=== PATIENT | male | born 1980 | race Caucasian/White ===

== ENCOUNTER 2023-06-18 17:54 | Emergency (ER) | payer OTHER, SELFPAY ==
--- NOTE | 2023-06-18 17:56 | ED.GENADULT ---
HPI - General Adult General Chief complaint: Dental/Oral Stated complaint: Tongue Pain Time Seen by Provider: 06/18/23 18:01 Source: patient, RN notes reviewed and old records reviewed Mode of arrival: ambulatory Limitations: no limitations History of Present Illness HPI narrative: 43-year-old male presents to the [facility] with complaints of tongue pain that started wants to month ago, was seen treated with Diflucan and nystatin which he has completed. Pain and the white pattern to the right side tongue has not completely gone away. Pain has been increasing. Has not followed up with primary care provider. Patient states that started after drinking a monster drink Denies any past medical history. Denies any recent dental work. States the Diflucan in the nystatin has not close to working. Tried swishing and spitting liquid Benadryl last night and it stone more. Onset (ago): week(s) (4+) Location: mouth (tongue) Related Data Allergies Allergy/AdvReac Type Severity Reaction Status Date / Time Sulfa (Sulfonamide Allergy Intermediate Hives Verified 06/18/23 18:05 Antibiotics) Review of Systems Review of Systems: All systems reviewed & are unremarkable except as noted in HPI and below Constitutional: Constitutional: Reports no additional constitutional complaints Eyes: Eyes: Reports no additional eye complaints ENT: Reports as per HPI Cardiovascular: Cardiovascular: Reports no additional cardiovascular complaints, Denies chest pain and Denies dyspnea Respiratory: Respiratory: Reports no additional respiratory complaints, Denies chest congestion, Denies cough and Denies dyspnea Gastrointestinal: Gastrointestinal: Reports no additional gastrointestinal complaints, Denies abdominal pain, Denies nausea and Denies vomiting Musculoskeletal: Musculoskeletal: Reports no additional musculoskeletal complaints Integumentary/Breasts: Skin/Breast: Reports system reviewed and no additional complaints, except as docu Neurologic: Reports system reviewed and no additional complaints, except as documented Psychiatric: Psychiatric: Reports no additional psychiatric complaints Allergic/Immunologic: Allergic/Immunologic: Reports no additional allergic/immunologic complaints PMFSH Past Medical History Medical History (Updated 06/19/23 @ 17:56 by Caprice Bentley APRN) Patient denies medical problems Comments At the time of my signature, I reviewed and agree with the nursing past medical, surgical, social, and family history. There is no relevant family history pertinent to the patient complaint. Exam Const: General: cooperative, healthy appearing, comfortable, no acute distress, well developed, alert and well nourished Nutritional Appearance: well nourished Orientation/consciousness: patient oriented x3 Limitations: no limitations HENMT: Head: normal to inspection Ears: hearing grossly normal bilaterally and external ears normal Face/Nose/Sinus: Normal external nose present, Normal nares present, Normal nasal mucous membranes and turbinates present and normal facial exam Face and sinus: normal facial exam Mouth: Yes Normal oral and palatal mucosa present, Yes lip normal, No tongue normal and Yes moist mucous membranes Mouth/tongue images: 1. redness with white patches. mild swelling. tender Throat: posterior oropharynx normal and uvula midline Eyes: General: appearance normal, both eyes and all related structures Alignment and Position: alignment normal Periorbital: periorbital findings normal Pupils: Equal, round and reactive pupils present EOM: EOMs intact bilaterally Neck: Neck: normal visual inspection, full ROM, no lymphadenopathy and no meningeal signs Chest: Chest palpation & inspection: normal inspection of the chest Resp: Effort & Inspection: normal respiratory effort and able to speak in complete sentences Auscultation: clear to auscultation bilaterally, no crackles, no rales, no rhonchi and no wheezes
[2023-06-18 18:02] VITALS: BP 129/65; PULSE 58; RESP 16; TEMP 36.3; O2SAT 100
== END 2023-06-18 18:31 | disposition home or self-care (01) ==
PROVIDERS: Emergency Provider Nurse Practitioner
DX: L43.9 Lichen planus, unspecified (principal)
CPT/HCPCS: 99203; G0463

== ENCOUNTER 2023-12-21 08:52 | Emergency (ER) | payer OTHER, SELFPAY ==
--- NOTE | ~2023-12-21 | XR_ITS ---
EXAMINATION: XR chest 2V 12/21/2023 09:31 INDICATION: Productive cough PROCEDURE: 2 view chest COMPARISON: No prior studies for comparison. FINDINGS: The lungs are clear. The cardiomediastinal silhouette is within normal limits. There are no pleural effusions. There is no pneumothorax suspected. IMPRESSION: 1: NO ACUTE CARDIOPULMONARY DISEASE. Reviewed, dictated and finalized at location B. [facility]
[2023-12-21 09:02] VITALS: BP 117/60; PULSE 61; RESP 16; TEMP 36.6; O2SAT 100
--- NOTE | 2023-12-21 09:06 | ED.URI ---
HPI - URI/Sore Throat General Chief Complaint: Upper Respiratory Infection Stated Complaint: Congestion, Headache Time Seen by Provider: 12/21/23 09:07 Source: patient Mode of arrival: ambulatory Limitations: no limitations History of Present Illness HPI Narrative: 43-year-old male presents to [facility] with complaints of 1 week duration of sinus congestion, headache, sinus drainage of yellowish green discharge, fever up to 103F on Sunday but none since. Patient reports that he has had some body aches, did have cold chills and fatigue yesterday. Patient reports that children have been ill with known exposure to influenza A. Patient denies any nausea,vomiting or diarrhea, denies any shortness of breath or wheezing. 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 Patient has been taking Ibuprofen and Sudafed and doing sinus rinses. MD elicited complaint: fever, cough, rhinorrhea, nasal congestion and other (body aches and chills) Pertinent past history: pneumonia Onset (ago): week(s) (1) Description of mucous: yellow and green Able to tolerate fluids by mouth: Yes Treatments prior to arrival: ibuprofen and other (Sudafed and sinus rinses) Related Data Allergies Allergy/AdvReac Type Severity Reaction Status Date / Time Sulfa (Sulfonamide AdvReac Mild Hives Verified 12/21/23 08:57 Antibiotics) Review of Systems Review of Systems: CONSTITUTIONAL: Reports malaise, chills, sweats, or fever. EYES: Denies visual changes, redness, or discharge. ENT: Reports rhinorrhea, congestion, sinus pain,left otalgia and no sore throat. CARDIOVASCULAR: Denies chest pain, palpitations, or edema. RESPIRATORY: Reports cough.? Denies dyspnea. GASTROINTESTINAL: Denies abdominal pain, nausea, vomiting, diarrhea SKIN: Denies rash or itching. MUSCULOSKELETAL: Reports myalgia. NEUROLOGIC: reports headache. 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 There is no relevant family history pertinent to the presenting complaint Exam Narrative: GENERAL: Well-appearing, well-nourished, and in no acute distress. HEAD: Normocephalic EYES: PERRLA, conjunctivae clear ENT: Nares clear, turbinates edematous and erythematous, yellow green discharge with headache sinus pressure . Mucous membranes moist. TM pearly vance with dull light reflex bilaterally; no tragal tenderness. Oropharynx erythematous without lesions. Tonsils not present and throat without exudate, no drooling, no hoarseness, no trismus, uvula midline.post nasal discharge NECK: Supple. No lymphadenopathy CHEST: Coarse breath sounds left base on auscultation, breath sounds equal. No wheezing, rhonchi, rales, or stridor. No respiratory distress, speaks in full sentences. occasional cough noted,SAO2 100% on room air HEART: Regular rate and rhythm. No murmur heard. SKIN: Warm, dry, no rash. NEURO: Alert and oriented x3. PSYCH: Normal mood and affect Course Course Emergency Course: Patient is aware of diagnosis, understands and agrees to treatment plan.? Anticipatory guidance given.? Patient agrees to annette
== END 2023-12-21 09:50 | disposition home or self-care (01) ==
PROVIDERS: Emergency Provider Registered Nurse
DX: J01.40 Acute pansinusitis, unspecified (principal); Z20.822 Contact with and (suspected) exposure to COVID-19; Z86.16 Personal history of COVID-19
CPT/HCPCS: 71046; 87426; 87804; 99203; G0463

== ENCOUNTER 2024-11-08 09:57 | Emergency (ER) | payer OTHER, SELFPAY ==
[2024-11-08 10:05] VITALS: BP 131/76; PULSE 58; RESP 20; TEMP 36.4; O2SAT 100
--- NOTE | 2024-11-08 10:10 | ED_ITS ---
HPI - General Adult General Chief complaint: Upper Respiratory Infection Stated complaint: sinus infection Time Seen by Provider: 11/08/24 10:10 Source: patient Mode of arrival: ambulatory Limitations: no limitations History of Present Illness HPI narrative: 44-year-old male patient presents to the [facility] with complaints of cold symptoms, sinus congestion, runny nose and left-sided ear pain for the past 2-3 days. Patient states he has had congestion last week but was not as severe and states patient just recently had left-sided ear pain starting about 2-3 days ago denies fevers but states has had some chills. Denies chest pain, shortness of breath or cough. Denies any abdominal pain, nausea, vomiting or diarrhea. Patient states he has just been taking 600 mg ibuprofen for pain. Related Data Allergies Allergy/AdvReac Type Severity Reaction Status Date / Time Sulfa (Sulfonamide AdvReac Mild Hives Verified 11/08/24 10:15 Antibiotics) Review of Systems Review of Systems: CONSTITUTIONAL: Denies fever, positive chills, and sweats. EYES: Denies visual changes, redness, or discharge. ENT: positive rhinorrhea, congestion, denies sore throat, Positive left otalgia. CARDIOVASCULAR: Denies chest pain, palpitations, or edema. RESPIRATORY: Denies cough or dyspnea. GASTROINTESTINAL: Denies abdominal pain, nausea, vomiting, or diarrhea. GENITOURINARY: Denies dysuria or hematuria. SKIN: Denies rash or itching. MUSCULOSKELETAL: Denies back pain, joint pain, or myalgia. NEUROLOGIC: Denies headache, numbness, or weakness. PSYCHIATRIC: Denies anxiety or depression. 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 There is no relevant family history pertinent to the presenting complaint. Exam Narrative: GENERAL: Well-appearing, well-nourished, and in no acute distress. HEAD: Normocephalic, atraumatic. EYES: PERRLA and EOMI. ENT: Nares with erythema edema noted bilaterally, clear rhinorrhea no epista xis. Mucous membranes moist. posterior pharynx with no erythema, tonsillar enlargement, exudates or lesions present. Unable to assess the right TM due to cerumen impaction. The left TM with bulging, erythema and some pus noted behind TM. NECK: Supple. No lymphadenopathy CHEST: Clear to auscultation. No respiratory distress. HEART: Regular rate and rhythm. No murmur heard. Normal peripheral pulses. ABDOMEN: Soft, nontender, nondistended, normal active bowel sounds. EXTREMITIES: Normal range of motion. No edema. SKIN: Warm, dry, no rash. NEURO: No focal deficits. Alert and oriented x3. Course Course Level of Care: Express Care Visit Vital Signs Vital signs: Vital Signs Temperature 36.4 C 11/08/24 10:05 Pulse Rate 58 L 11/08/24 10:05 Respiratory Rate 20 11/08/24 10:05 Blood Pressure 131/76 11/08/24 10:05 Pulse Oximetry 100 11/08/24 10:05 Oxygen Delivery Room Air 11/08/24 10:05 Temperature 36.4 C 11/08/24 10:05 Pulse Rate 58 L 11/08/24 10:05 Respiratory Rate 20 11/08/24 10:05 Blood Pressure 131/76 11/08/24 10:05 Pulse Oximetry 100 11/08/24 10:05 Oxygen Delivery Room Air 11/08/24 10:05 Vital signs reviewed. The patient has been informed that they may have pre-hypertension or Hypertension based on a BP reading in the department. I recommend that the patient call the primary care provider listed on their discharge instructions or a physician of their choice this week to arrange follow up for further evaluation of possible pre-hypertension or Hypertension Medical Decision Making MDM Narrative Medical decision making narrative: Discussed with patient does appear that he has an obvious left-sided ear infection which we will discharge him home with oral antibiotics. Patient should also take [id number] antihistamine and Flonase to help with the congestion symptoms. Patient may take Tylenol and ibuprofen as needed for pain. Patient verbalized understanding denies any other questions or concerns at this time Differential Diagnosis Differential Diagnosis: Differential diagnosis: Allergic rhinitis, chronic sinusitis, tonsillitis, acute sinusitis, infectious mononucleosis, seasonal influenza, pertussis, diphtheria, meningococcal disease, viral syndrome, viral bronchitis, RSV, COVID- 19 Vital Signs Vital Signs: Vital Signs Temperature 36.4 C 11/08/24 10:05 Pulse Rate 58 L 11/08/24 10:05 Respiratory Rate 20 11/08/24 10:05 Blood Pressure 131/76 11/08/24 10:05 Pulse Oximetry 100 11/08/24 10:05 Oxygen Delivery Room Air 11/08/24 10:05 Temperature 36.4 C 11/08/24 10:05 Pulse Rate 58 L 11/08/24 10:05 Respiratory Rate 20 11/08/24 10:05 Blood Pressure 131/76 11/08/24 10:05 Pulse Oximetry 100 11/08/24 10:05 Oxygen Delivery Room Air 11/08/24 10:05 Critical Care Time Critical Care Time Critical Care Time: No Discharge Plan Discharge Clinical Impression: Acute left otitis media Patient Disposition: Home, Self-Care Condition: Stable Instructions: Antibiotic Form, Ear Infection (ED) Additional Instructions: An ear infection is also called otitis media. An ear infection may be caused by blocked or swollen eustachian tubes. Eustachian tubes connect the middle ear to the back of the nose and throat. They drain fluid from the middle ear. With an e ar infection, fluid builds up and is infected by germs. The germs grow easily in fluid trapped behind the eardrum. DISCHARGE INSTRUCTIONS: Call 911 or have someone call 911 for the following: You have a seizure. Return to the emergency department if: You have a fever and a stiff neck. Contact your healthcare provider if: Your ear pain gets worse or does not go away, even after treatment. The outside of your ear is red or swollen. You are vomiting or have diarrhea. You have fluid coming from your ear. You have questions or concerns about your condition or care. Medicines: Acetaminophen decreases pain and fever. It is available without a doctor's order. Ask how much to take and how often to take it. Follow directions. Read the labels of all other medicines you are using to see if they also contain acetaminophen, or ask your doctor or pharmacist. Acetaminophen can cause liver damage if not taken correctly. Do not use more than 4 grams (4,000 milligrams) total of acetaminophen in one day. NSAIDs , such as ibuprofen, help decrease swelling, pain, and fever. This medicine is available with or without a doctor's order. NSAIDs can cause stomach bleeding or kidney problems in certain people. If you take blood thinner medicine, always ask your healthcare provider if NSAIDs are safe for you. Always read the medicine label and follow directions. Ear drops help treat your ear pain. Antibiotics help treat a bacterial infection that caused your ear infection. Take your medicine as directed. Contact your healthcare provider if you think your medicine is not helping or if you have side effects. Tell him or her if you are allergic to any medicine. Keep a list of the medicines, vitamins, and herbs you take. Include the amounts, and when and why you take them. Bring the list or the pill bottles to follow-up visits. Carry your medicine list with you in case of an emergency. Prevent an ear infection: Wash your hands often. Use soap and water. Wash your hands after you use the bathroom, change a child's diapers, or sneeze. Wash your hands before you prepare or eat food. Handwashing Stay away from people who are ill. Some germs are easily and quickly spread through contact. Patient Language: Thai Prescriptions: New amoxicillin-pot clavulanate 875-125 mg tablet 1 tablet PO Q12H 5 Days Qty: 10 0RF No Action amoxicillin 875 mg tablet 875 mg PO Q12H Qty: 20 0RF Rx Instructions: Take all doses of antibiotic till completed may eat Activia yogurt or use probiotic while taking Follow-up/Referrals: Manav,Urvashi Coe [Other] Time of Disposition: 10:18
--- OUTSIDE RECORDS SUMMARY | 2024-11-12 02:46 | XMS_ITS | Continuity of Care Document ---
Author Name [facility] Organization [facility] Care Team Providers Care Carbide Operator Name Role Phone [facility] Unavailable Unavailable Medications Combined list of outpatient medications from Department of Defense and Veterans Affairs facilities.Medications provided include 1) outpatient medications from the last 15 months, and 2) patient-reported medications. Medication Details Route Status Patient Instructions Prescription Expires Prescription Number Last Dispense Date Ordering Provider Order Date Order Qty Source AMOXICILLIN (amoxicilli n), 875 MG, TABLET, ORAL, [facility], 100 ea. BOTTLE Active [id number] 2023 20 Pharmac y Data Transac tion Service Facilit y Immunizations Combined list of available immunizations from the Department of Defense and Veterans Affairs facilities. 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 Status Comments Source meningococcal oligosacchari de (MCV4O) 2021 [id number] 136 GlaxoSmithKli ne complet ed meningoco ccal oligosacc haride (MCV4O) 09/30/22 Given Ambulat ory Pharmac y influenza virus vaccine, unspecified 2021 TRANSCR IBED 88 Unknown complet ed influenza virus vaccine, unspecifi ed 09/07/22 Given Ambulat ory Pharmac y yellow fever vaccine 2021 [id number] sanofi pasteur complet ed yellow fever vaccine 08/05/22 Given Ambulat ory Pharmac y typhoid Vi capsular polysaccharid e vac 2021 [id number] sanofi pasteur complet ed typhoid Vi capsular polysacch aride vac 08/05/22 Given Ambulat ory Pharmac y tetanus-dipht h toxoids (Td) adult/adol 2021 [id number] sanofi pasteur complet ed tetanus-d iphth toxoids (Td) adult/ado l 04/06/22 Given Ambulat ory Pharmac y influenza, seasonal, injectable-pf 2020 [id number] GlaxoSmithKli ne complet ed influenza , seasonal, injectabl e-pf 09/06/21 Given Ambulat ory Pharmac y COVID Vaccine Pfizer 2020 TRANSCR IBED 208 complet ed COVID Vaccine Pfizer 12/15/20 Given Ambulat ory Pharmac y influenza virus vaccine, unspecified 2019 TRANSCR IBED 88 complet ed influenza virus vaccine, unspecifi ed 09/06/20 Given Ambulat ory Pharmac y influenza virus vaccine, unspecified 2018 TRANSCR IBED 88 complet ed influenza virus vaccine, unspecifi ed 09/18/19 Given Ambulat ory Pharmac y influenza virus vaccine, unspecified 2013 TRANSCR IBED 88 complet ed influenza virus vaccine, unspecifi ed 08/31/14 Given Ambulat ory Pharmac y tuberculin purified protein derivative 2013 TRANSCR IBED 96 complet ed tuberculi n purified protein derivativ e 07/06/14 Given Ambulat ory Pharmac y influenza virus vaccine, unspecified 2012 TRANSCR IBED 88 complet ed influenza virus vaccine, unspecifi ed 08/27/13 Given Ambulat ory Pharmac y tuberculin purified protein derivative 2012 TRANSCR IBED 96 complet ed tuberculi n purified protein derivativ e 07/16/13 Given Ambulat ory Pharmac y hepatitis A vaccine, unspecified formul 2011 TRANSCR IBED 85 complet ed hepatitis A vaccine, unspecifi ed formul 09/30/12 Given Ambulat ory Pharmac y tuberculin purified protein derivative 2011 TRANSCR IBED 96 complet ed tuberculi n purified protein derivativ e 05/24/12 Given Ambulat ory Pharmac y hepatitis A vaccine, unspecified formul 2011 TRANSCR IBED 85 complet ed hepatitis A vaccine, unspecifi ed formul 03/22/12 Given Ambulat ory Pharmac y tetanus, diphtheria, acellular pertu is 2011 TRANSCR IBED 115 complet ed tetanus, diphtheri a, acellular pertussis 03/22/12 Given Ambulat ory Pharmac y meningococcal ACWY vaccine, unspecified 2011 TRANSCR IBED 108 complet ed meningoco ccal ACWY vaccine, unspecifi ed 03/22/12 Given Ambulat ory Pharmac y hepatitis B vaccine, unspecified formul 1998 TRANSCR IBED 45 complet ed hepatitis B vaccine, unspecifi ed formul 02/25/99 Given Ambulat ory Pharmac y hepatitis B vaccine, unspecified formul 1997 TRANSCR IBED 45 complet ed hepatitis B vaccine, unspecifi ed formul 09/03/98 Given Ambulat ory Pharmac y hepatitis B vaccine, unspecified formul 1997 TRANSCR IBED 45 complet ed hepatitis B vaccine, unspecifi ed formul 08/06/98 Given Ambulat ory Pharmac y measles/mumps /rubella virus vaccine 1990 TRANSCR IBED 03 complet ed measles/m umps/rube lla virus vaccine 06/07/91 Given Ambulat ory Pharmac y varicella virus vaccine 1989 TRANSCR IBED 21 complet ed varicella virus vaccine 01/07/90 Given Ambulat ory Pharmac y measles/mumps /rubella virus vaccine 1980 TRANSCR IBED 03 complet ed measles/m umps/rube lla virus vaccine 06/07/81 Given Ambulat ory Pharmac y poliovirus vaccine, inactivated 1979 TRANSCR IBED 10 complet ed polioviru s vaccine, inactivat ed 80 Given Ambulat ory Pharmac y poliovirus vaccine, inactivated 1979 TRANSCR IBED 10 complet ed polioviru s vaccine, inactivat ed 80 Given Ambulat ory Pharmac y poliovirus vaccine, inactivated 1979 TRANSCR IBED 10 complet ed polioviru s vaccine, inactivat ed 80 Given Ambulat ory Pharmac y poliovirus vaccine, inactivated 1979 TRANSCR IBED 10 complet ed polioviru s vaccine, inactivat ed 80 Given Ambulat ory Pharmac y Results Combined list of recent chemistry, hematology and other laboratory results from Department of Defense and Veterans Affairs, ranging from 15 months to all on record, depending upon the facility. Order Name Results Value Reference Range Date Interpretation Specimen Comments Source Infectio us Disease HIV-1/O/2 Non-Reac tive 1 (08/04/23 9:41 AM) 08/04 N Interpretiv e Data: INTERPRETAT ION: This method is a screening procedure for the detection of HIV p24 Antigen and Antibodies to HIV-1, including Group O, and/or HIV-2. NON-REACTIV E: HIV-1 antigen and HIV-1 / HIV-2 antibodies were not detected. No laboratory evidence of HIV infection. A negative test result does not exclude the possibility of exposure to or infection with HIV. HIV antibodies and/or p24 antigen may be undetectabl e in some stages of the infection and in some clinical conditions. If acute HIV infection is suspected, consider submitting another specimen to a reference laboratory for HIV-1 RNA. SCREEN REACTIVE - CONFIRMATIO N TO FOLLOW: Possible presence of HIV-1antibo dies, HIV-2 antibodies and/or HIV-1 p24 antigen. Specimen will reflex to the confirmatio n testing that fulfills the Center for Disease Control and Prevention' s HIV diagnostic algorithm. Refer to [facility] Lab Guide for additional information : [email or web address] x Testing performed by Annabelle monroe. [facility] Elicella neous Sendouts Repository Sample Received (08/04/23 9:41 AM) 08/04 N [facility] Vital Signs Combined list of inpatient and outpatient Vital Signs from Department of Defense and Veterans Affairs, ranging from 12 months to all on record, depending upon the facility. Vital Sign Value Date Comments Source No data available for this section Ambulatory Pharmacy Encounters Combined list of: 1) Encounters from Department of Veterans Affairs facilities going back up to thelast 18 months. 2) Encounters from the Department of Defense facilities going back up to 280 months. Location Location Details Encounter Type Encounter Number Reason For Visit Attending Provider ADM Date DC Date Status Disposition Source [address] [place] [address] Mert ALEXANDRE ([facility] [place] [facility]) TELE CONSULT [id number] 5 Notes Entered by: ANDRES SYED 24 May 2021 1102 ------- ------- ------- ------- -- Illness ANDRES SYED 05/[address] [place] [address] Mert ALEXANDRE ([facility] [place] [facility]) Procedures Combined list of: 1) Procedures from [facility] of [facility] facilities [facility], not all VA non-surgical procedures are included; 2) All procedures from the Department of Defense facilities. Procedure Procedure Type Code Date Perfomer Comments Sourc e No data available for this section Ambulatory P harmacy Social History Combined list of available smoking, tobacco, and other social history from Department of Defense and Veterans Affairs facilities. Social History Type Response Date Comment Sourc e This section is an empty social history section. DoD Assessment and Plan Combined list of future care activities from Department of Defense and Veterans Affairs facilities (e.g., assessment and plan notes, appointments, orders, and referrals). Additional future care activities may be listed in the Plan of Care section. Result Assessment and Plan Date Source Assessment and Plan No data available for this section 11/12/2024 Ambulatory Pharmacy Functional Status Combined list of recent functional and cognitive assessments recorded at [facility] Functional [place] Measurement (FIM) Scale: 1 = Total Assistance (Subject = 0% +), 2 = Maximal Assistance (Subject = 25% +), 3 = Moderate Assistance (Subject = 50% +), 4 = Minimal Assistance (Subject = 75% +), 5 = Supervision, 6 = Modified [place] (Device), 7 = Complete [place] (Timely, Safely). Assessment Date/Time Source Assessment Type Assessment Skill Assessment Score Assessment Details No data available for this section
--- OUTSIDE RECORDS SUMMARY | 2024-11-12 02:47 | XMS_ITS | Encounter Summary ---
Author Organization [facility] Address [address] [place] [address] Care Team Providers Care Actuarial Technician Name Role Phone Carmen Day MD Primary Care Provider Reason for Visit * Reason Comments Establish Care Pt hasn't had a PCP since his Peds doctor. Looking to establish care Allergic reaction Pt having enflamed t ongue after drinking Bubbly drinks and monster. Encounter Details Date Type Department Care Team (Late st Contact Info) Description 07/27/2023 9:20 AM CDT Office Visit [facility] Medical [facility] - Family Medicine [address], [address] [place] [address] Urvashi Farnsworth, [facility] 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; Lipid screening; Thyroid disorder screen; Screening for deficiency anemia; Diabetes mellitus screening; Screen for STD (sexually transmitted disease); Encounter for screening for metabolic disorder Social History Tobacco Use Types Packs/Day Years Used Date Smoking Tobacco: Never Passive Smoke Exposure: Never Smokeless Tobacco: Never Tobacco Cessation:Counseling Given: Not Answered Alcohol Use Standard Drinks/Week Comments Not Asked 0 (1 standard drink = 0.6 oz pur e alcohol) socially PHQ-2 Answer Date Recorded Patient Health Questionnaire-2 Score 0 07/27/2023 Sex and Gender Information Value Date Recorded Sex Assigned at Not on file Gender Identity Not on file Sexual Orientation Not on file documented as of this encounter Last Filed Vital Signs Vital Sign Reading Time Taken Comments Blood Pressure 120/80 07/27/2023 9:13 AM CDT Pulse 50 07/27/2023 9:13 AM CDT Temperature 36.7 ??C (98 ??F) 07/27/2023 9:13 AM CDT Respiratory Rate - - Oxygen Saturation 99% 07/27/2023 9:13 AM CDT Inhaled Oxygen Concentration - - Weight 82.6 kg (182 lb) 07/27/2023 9:13 AM CDT Height 180.3 cm (5' 11 ) 07/27/2023 9:13 AM CDT Body Mass Index 25.38 07/27/2023 9:13 AM CDT documented in this encounter Patient Instructions * Patient Instructions* Urvashi Farnsworth, VE[employer] B[employer]ER-PIG MACHINE CRANE OPERATOR - 07/27/2023 9:51 AM CDT It was great to meet you today. Thank you for coming in! I have placed an order for you to have some blood work done Please go to any [facility] at your convenience. There is no paperwork needed as the order is placed electronically. You do not need to schedule an appointment however if an appointment is preferred you can schedule online at [email or web address]. The nearest location to the office is: [address] [place], [place] [id number] Hours: 7:30-11?AM, 12-4?PM Daily. They are closed on Sunday You do need to fast for them, which means no food for 8-12 hours before the test. However taking water with your medications is ok. If you have mychart you may get your lab results before I do. It takes time to thoroughly review your results and I will reach out to you within 2 weeks of receiving them. If you do not have mychart a nurse will call you within 2 weeks to review the results with you. You may also receive a letter in the mail. There is no need to reach out before then unless there is an urgent concern. The lab notifies myself and Dr Allen immediately of any critical result , with which you will be notified immediately as well. For the oral lesions try the topical steroids for the next 2 weeks then stop For applications: dry the affected areas (with gauze) prior to application. The topical corticosteroid is applied three to six times per day using a fingertip or cotton-tipped applicator (eg, Q-tip).Eating, drinking, and even speaking should be avoided for at least 30 minutes after application. Assymptoms improve, the frequency of application is reduced as tolerated. I'll be in touch if I find out any more dietary suppression resources documented in this encounter Progress Notes * Urvashi Farnsworth APRN-CNP - 07/27/2023 9:20 AM CDT History of Present Illness Tobias Del Toro is a 43 year old male who presents to the office to establish care Chief Complaint Patient presents with ??? Establish Care Pt hasn't had a PCP since his Peds doctor. Looking to establish care ??? Allergic reaction Pt having enflamed tongue after drinking Bubbly drinks and monster. 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 Will eat out a few times a month Exercise: yes- 4 days per week. Running or row for 30 mins. 2 days crossfit gym Sleep:7 hours per night. Medical concerns: Patient seen in UC in April with complaints of tongue redness, beefy red could not tolerate hot or spicy foods. He had been drinking lots of bubly sparkling water. Treated with fluconazole without relief. Stopped drinking coffee and beer as a result of the current symptoms. Would have so much pain at the end of the day he was unable to tolerate PO intake. Drinks herbal tea raw milk, water. Started drinking monster. Was seen in UC again on 06/15. This time with white patches that resembled a large canker sore to left side of his tongue. Lesions did not extend to buccal mucosa. Hard palate was erythematous but has since resolved. He was diagnosed withoral lichen planus and treated with topical corticosteroid initially without relief. He was also provided oral prednisone, protracted taper with relief but symptom returned almost immediately. No longer drinking anything out of a can. He has currently been on 5 mg every other day for the past 2 weeks. Does not desire autoimmune workup or treatment at this time. STD screening offered: yes PSA(50): N/A due Colonoscopy(45if high risk/50): not due Lung cancer screen: N/A Vaccines reviewed Wt Readings from Last 3 Encounters: 07/27/23 82.6 kg (182 lb) Weight change: 0 lbs in the past year Depression: PHQ-2:Patient Health Questionnaire-2 Score: 0 PHQ-9: Independent in ADLs No DME Labs reviewed: N\A Assessment and Plan ICD-10-CM 1. Encounter for medical examination to establish care Z00.00 2. Follow-up exam after treatment Z09 3. Oral lichen planus L43.8 clobetasol (Temovate) 0.05 % ointment 4. 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 Lipid screening Z13.220 LIPID PROFILE 6. Thyroid disorder screen Z13.29 TSH REFLEX FREE T4 7. Screening for deficiency anemia Z13.0 CBC WITH DIFFERENTIAL 8. Diabetes mellitus screening Z13.1 COMPREHENSIVE METABOLIC PANEL HEMOGLOBIN A1C 9. Screen for STD (sexually transmitted disease) Z11.3 HEPATITIS C ANTIBODY W RFLX PCR HIV-1 HIV-2 ANTIBODY + HIV P24 AG PANEL 10. Encounter for screening for metabolic disorder Z13.228 COMPREHENSIVE METABOLIC PANEL Patient seen today to establish care. Health maintenance updated. Oral lesions are new problem with no current exacerbation today. I do not have urgent care records available for review. Patient to transition from oral to topical steroid treatment x2 weeks then stop and use as needed for 2 weeks of use then 2 weeks cessation. Continue to avoid carbonated beverages and eat a diet rich in fruits and vegetables. Update labs as noted The above was discussed with the patient and understanding was voiced. Patient is in agreement withthe above plan HM: Health Maintenance Topic Date Due ??? LIPID TESTING Never done ??? HIV SCREENING Never done ??? HEPATITIS C SCREENING Never done ??? COVID-19 VACCINE (3 - Pfizer series) 02/09/2021 ??? INFLUENZA VACCINE (1) 07/27/2023 ??? SCREENING FOR DIABETES Never done ??? DTAP/TDAP/TD VACCINES (4 - Td or Tdap) 04/06/2032 ??? HEPATITIS B VACCINE Completed ??? DEPRESSION SCREENING Completed ??? PNEUMOCOCCAL VACCINE Aged Out ??? HIB VACCINE Aged Out ??? MENINGOCOCCAL VACCINE Aged Out Past Medical, Surgical, Social, and Family Histories Patient Active Problem List Diagnosis Date Noted ??? Oral inflammation 05/23/2023 Priority: Not Prioritized ??? Left knee pain 04/04/2019 Priority: Not Prioritized No past medical history on file. Past Surgical History: Procedure Laterality Date ??? Tonsillectomy Social History Socioeconomic History ??? Marital status: Spouse name: Not on file ??? Number of children: Not on file ??? Years of education: Not on file ??? Highest education level: Not on file Occupational History ??? Not on file Tobacco Use ??? Smoking status: Never Passive exposure: Never ??? Smokeless tobacco: Never Vaping Use ??? Vaping Use: Never used Substance and Sexual Activity ??? Alcohol use: Not on file Comment: socially ??? Drug use: Never ??? Sexual activity: Yes Partners: Female control/protection: Condom Other Topics Concern ??? Not on file Social History Narrative ??? Not on file Social Determinants of Health Financial Resource Strain: Not on file Food Insecurity: Not on file Transportation Needs: Not on file Stress: Not on file Housing Stability: Not on file Family History Problem Relation Name Age of Onset ??? Hypertension Mother ??? Cancer - Esophageal Father ??? Hypertension Father ??? Hypertension Brother ??? Cancer - Lung Maternal Grandmother ??? None Known Maternal Grandfather ??? Cancer - Lung Paternal Grandmother ??? Cancer - Pancreatic Paternal Grandfather Medication and Allergies Allergies Allergen Reactions ??? Sulfa Drugs Urticaria ??? Sulfa Antibiotics Other Current Outpatient Medications Medication Sig Dispense Refill ??? Cod Liver Oil ??? predniSONE (Deltasone) 20 MG tablet TAKE 3 TABLETS BY MOUTH DAILY FOR 3 DAYS THEN TAKE 2 TABLETS BY MOUTH DAILY FOR 3 DAYS THEN TAKE 1 TABLET BY MOUTH DAILY FOR 3 DAYS No current facility-administered medications for this visit. Immunization History Administered Date(s) Administered ??? Covid Pfizer primary monovalent 12+ yr 0.3mL Purple cap 11/23/2020, 12/15/2020 ??? FLU VACCINE QUAD CCIIV4 PF IM 09/02/2017 ??? FLU VACCINE QUAD IIV4 SPLIT PF IM 11/08/2016 ??? FLU VACCINE TRI IIV3 SPLIT PF IM (FLUVIRIN) 09/06/2021 ??? HEP A PED and ADULT, HISTORIC VACCINE 03/22/2012, 09/30/2012 ??? HEP B VACCINE, PED/ADOL 08/06/1998, 09/03/1998, 02/25/1999 ??? HEP B, HISTORIC VACCINE 08/06/1998, 09/03/1998, 02/25/1999 ??? INFLUENZA 08/27/2013, 08/31/2014, 09/18/2019, 09/06/2020, 09/07/2022 ??? MENINGOCOCCAL MCV4O 09/30/2022 ??? MENINGOCOCCAL, HISTORIC VACCINE 03/22/2012 ??? MMR 06/07/1981, 06/07/1991 ??? POLIO IPV 1980, 1980, 1980, 1980 ??? PPD 05/24/2012, 07/16/2013, 07/06/2014 ??? TD (AGE 7-ADULT) 01/18/2005 ??? TDAP 03/22/2012 ??? TYPHOID IM 08/05/2022 ??? Td (Adult), 2 Lf Tetanus Toxoid, Adsorbed, Pf 04/06/2022 ??? VARICELLA 01/07/1990 ??? YELLOW FEVER 08/05/2022 Review of Systems Except as noted in HPI Constitutional: Sleep and appetite ok. Eyes: No vision change. Ears, nose, mouth, and throat: No earache or discharge. No mouth sores or pain. Cardiovascular: No chest pain or shortness of breath or edema. Respiratory: No shortness of breath or wheezing. Gastrointestinal: No pain or nausea, vomiting, diarrhea or blood in stool. Genitourinary: No voiding difficulty. Musculoskeletal:no joint pain or swelling. Skin: No new rash or skin breakdown. Neurological: No weakness or headaches. Behavioral/Psych: No depression or change in mood. Endocrine: No heat or cold intolerance Hematologic/lymphatic: No abnormal bleeding noted. Allergy: No congestion or allergic symptoms. Physical Examination Vitals: 07/27/23 0913 BP: 120/80 Pulse: 50 Temp: 98 ??F (36.7 ??C) SpO2: 99% Weight: 82.6 kg (182 lb) Height: 1.803 m (5' 11 ) CrCl cannot be calculated (No successful lab value found.). Body mass index is 25.38 kg/m??. Physical Exam Vitals reviewed. HENT: Head: Normocephalic and atraumatic. Right Ear: External ear normal. Left Ear: External ear normal. Nose: Nose normal. Mouth/Throat: Pharynx: No oropharyngeal exudate or posterior oropharyngeal erythema. Eyes: Extraocular Movements: Extraocular movements intact. Cardiovascular: Rate and Rhythm: Normal rate and regular rhythm. Heart sounds: Normal heart sounds. Pulmonary: Effort: Pulmonary effort is normal. Breath sounds: Normal breath sounds. Abdominal: General: Bowel sounds are normal. Palpations: Abdomen is soft. Musculoskeletal: General: Normal range of motion. Cervical back: Normal range of motion and neck supple. Skin: General: Skin is warm and dry. Neurological: Mental Status: He is alert and oriented to person, place, and time. Gait: Gait is intact. Psychiatric: Mood and Affect: Mood and affect normal. Cognition and Memory: Memory normal. Judgment: Judgment normal. Return to office: Return in about 3 months (around 10/26/2023) for Follow up tongue swelling- ok to cancel if no re occurance . or sooner PRN. Disclaimer: This dictation was created using voice recognition software. I have made every reasonable attempt to avoid errors. Please note that there may be variance in spelling, grammar and syntax because of the voice recognition system and hardware. If there any concerns please contact me directly. documented in this encounter Plan of Treatment Not on file documented as of this encounter Procedures Procedure Name Priority Date/Time Associated Diagnosis Comments INTERPRETATION REFLEXED Routine 08/17/2023 8:14 AM CDT Screen for STD (sexually transmitted disease) HEPATITIS C ANTIBODY W RFLX PCR Routine 08/17/2023 8:14 AM CDT Screen for STD (sexually transmitted disease) HIV-1 HIV-2 ANTIBODY + HIV P24 AG PANEL Routine 08/17/2023 8:14 AM CDT Screen for STD (sexually transmitted disease) TSH REFLEX FREE T4 Routine 08/17/2023 8: 14 AM CDT Thyroid disorder screen HEMOGLOBIN A1C Routine 08/17/2023 8:14 AM CDT Diabetes mellitus screening CBC W AUTO DIFFERENTIAL Routine 08/17/2023 8:14 AM CDT Screening for deficiency anemia COMPREHENSIVE METABOLIC PANEL Routine 08/17/2023 8:14 AM CDT Diabetes mellitus screening Encounter for screening for metabolic disorder LIPID PROFILE Routine 08/17/2023 8:14 AM CDT Lipid screening documented in this encounter Results * INTERPRETATION REFLEXED (08/17/2023 8:14 AM CDT) Interpretation [facility] INSURANCE BILL Comment: Not infected with HCV unless early or acute infection is suspected (which may be delayed in an immunocompromised individual), or other evidence exists to indicate HCV infection. FASTING 08/17/2023 8:14 AM CDT 08/17/2023 Narrative Resulting Agency Comment Lab Testing performed at: [address] ??[facility] [phone] Urvashi Farnsworth APRN-PIG MACHINE CRANE OPERATOR LAB - SEROLOGY O RDERABLES [facility] INSURANCE BILL [address] [place] [address] * HIV-1 HIV-2 ANTIBODY + HIV P24 AG PANEL (08/17/2023 8:14 AM CDT) HIV Screen 4th Generation w Reflex Non Reactive Non Reactive [facility] INSURANCE BILL Comment: HIV Negative HIV-1/HIV-2 antibodies and HIV-1 p24 antigen were NOT detected. There is no laboratory evidence of HIV infection. FASTING Blood BLOOD SPECIMEN / Unknown 08/17/2023 8:14 AM CDT 08/17/2023 Narrative Resulting Agency Comment Lab Testing performed at: [facility] [address] ??[facility] [phone] Urvashi Farnsworth VEST BASTER-PIG MACHINE CRANE OPERATOR LAB - CHEMISTRY ORDERABLES [facility] INSURANCE BILL [address] [place] [address] * HEPATITIS C ANTIBODY W RFLX PCR (08/17/2023 8:14 AM CDT) Hepatitis C Antibody Non Reactive Non Reactive [facility] INSURANCE BILL Comment:FASTING Blood BLOOD SPECIMEN / Unknown 08/17/2023 8:14 AM CDT 08/17/2023 Narrative Resulting Agency Comment Lab Testing performed at: [facility] [address] ??[facility] [id number] Urvashi Farnsworth [facility] LAB - CHEMISTRY ORDERABLES Performing Organization Address [facility] Co de Phone Number [facility] INSURANCE BILL [address] [place] [address] * (ABNORMAL) HEMOGLOBIN A1C (08/17/2023 8:14 AM CDT) Hemoglobin A1c 5.8(H) 4.8 - 5.6 % [facility] INSURANCE BILL Comment: ? . ? Prediabetes: 5.7 - 6.4 ? Diabetes: >6.4 ? Glycemic control for adults with diabetes: <7.0 FASTING Blood BLOOD SPECIMEN / Unknown 08/17/2023 8:14 AM CDT 08/17/2023 Narrative Resulting Agency Comment Lab Testing performed at: [employer] ??[facility] [id number] Urvashi Farnsworth VEST BASTER-PIG MACHINE CRANE OPERATOR LAB - CHEMISTRY ORDERABLES [facility] INSURANCE BILL [address] [place] [address] * TSH REFLEX FREE T4 (08/17/2023 8:14 AM CDT) TSH 0.794 0.450 - 4.500 uIU/mL [facility] INSURANCE BILL Comment:FASTING Blood BLOOD SPECIMEN / Unknown 08/17/2023 8:14 AM CDT 08/17/2023 Narrative Resulting Agency Comment Lab Testing performed at: [facility] [address] ??[facility] [id number] Urvashialma Farnsworth VEST BASTER-PIG MACHINE CRANE OPERATOR LAB - CHEMISTRY ORDERABLES Performing Organization Address City/[facility]/ZIP Co de Phone Number [facility] INSURANCE BILL [address] [place] [address] * CBC WITH DIFFERENTIAL (08/17/2023 8:14 AM CDT) WBC 7.3 3.4 - 10.8 x10E3/uL [facility] INSURANCE BILL RBC 5.15 4.14 - 5.80 x10E6/uL [facility] INSURANCE BILL Hemoglobin 14.9 13.0 - 17.7 g/dL [facility] INSURANCE BILL Hematocrit 45.1 37.5 - 51.0 % [facility] INSURANCE BILL MCV 88 79 - 97 fL [facility] INSURANCE BILL MCH 28.9 26.6 - 33.0 pg [facility] INSURANCE BILL MCHC 33.0 31.5 - 35.7 g/dL [facility] INSURANCE BILL RDW 13.2 11.6 - 15.4 % [facility] INSURANCE BILL Platelet Count 208 150 - 450 x10E3/uL [facility] INSURANCE BILL Granulocytes % 71 Not Estab. % [facility] INSURANCE BILL Lymphocytes % 18 Not Estab. % [facility] INSURANCE BILL Monocytes % 6 Not Estab. % [facility] INSURANCE BILL Eosinophils % 4 Not Estab. % [facility] INSURANCE BILL Basophils % 1 Not Estab. % [facility] INSURANCE BILL Immature Cells NOT AVAILABLE [facility] INSURANCE BILL Comment:Result cannot be obt ained for this observation. Granulocytes Absolute 5.3 1.4 - 7.0 x10E3/uL [facility] INSURANCE BILL Lymphocytes Absolute 1.3 0.7 - 3.1 x10E3/uL [facility] INSURANCE BILL Monocytes Absolute 0.4 0.1 - 0.9 x10E3/uL [facility] INSURANCE BILL Eosinophils Absolute 0.3 0.0 - 0.4 x10E3/uL [facility] INSURANCE BILL Basophils Absolute 0.0 0.0 - 0.2 x10E3/uL [facility] INSURANCE BILL Immature Granulocytes 0 Not Estab. % [facility] INSURANCE BILL Immature Granulocytes Absolute 0.0 0.0 - 0.1 x10E3/uL [facility] INSURANCE BILL nRBC NOT AVAILABLE [facility] INSURANCE BILL Comment:Result cannot be obt ained for this observation. Comment Hematology NOT AVAILABLE [facility] INSURANCE BILL Comment: FASTING Result cannot be obtained for this observation. Blood BLOOD SPECIMEN / Unknown 08/17/2023 8:14 AM CDT 08/17/2023 Narrative Resulting Agency Comment Lab Testing performed at: [facility] ??[facility] [phone] Urvashi Farnsworth VEST BASTER-PIG MACHINE CRANE OPERATOR LAB - HEMATOLOGY ORDERABLES [facility] INSURANCE BILL [address] [place] [address] * (ABNORMAL) COMPREHENSIVE METABOLIC PANEL (08/17/2023 8:14 AM CDT) Glucose 88 70 - 99 mg/dL [facility] INSURANCE BILL BUN 20 6 - 24 mg/dL [facility] INSURANCE BILL Creatinine 1.16 0.76 - 1.27 mg/dL [facility] INSURANCE BILL eGFR by CKD-EPI 80 >59 mL/min/1.7 3 [facility] INSURANCE BILL BUN/Creatinine Ratio 17 9 - 20 [facility] INSURANCE BILL Sodium 138 134 - 144 mmol/L [facility] INSURANCE BILL Potassium 4.7 3.5 - 5.2 mmol/L [facility] INSURANCE BILL Chloride 101 96 - 106 mmol/L [facility] INSURANCE BILL CO2 24 20 - 29 mmol/L [facility] INSURANCE BILL Calcium 9.6 8.7 - 10.2 mg/dL [facility] INSURANCE BILL Protein Total 6.4 6.0 - 8.5 g/dL [facility] INSURANCE BILL Albumin 4.5 4.1 - 5.1 g/dL [facility] INSURANCE BILL Globulin Total 1.9 1.5 - 4.5 g/dL [facility] INSURANCE BILL Albumin/Globulin Ratio 2.4(H) 1.2 - 2.2 [facility] INSURANCE BILL Bilirubin Total 1.5(H) 0.0 - 1.2 mg/dL [facility] INSURANCE BILL Alkaline Phosphatase 65 44 - 121 IU/L [facility] INSURANCE BILL AST 21 0 - 40 IU/L [facility] INSURANCE BILL ALT 24 0 - 44 IU/L [facility] INSURANCE BILL Comment:FASTING Blood BLOOD SPECIMEN / Unknown 08/17/2023 8:14 AM CDT 08/17/2023 Narrative Resulting Agency Comment Lab Testing performed at: [facility] ??[facility] [id number] Urvashi Farnsworth [facility] - CHEMISTRY ORDERABLES Performing Organization Address City/[facility] Co de Phone Number [facility] INSURANCE BILL [address] [place] [address] * (ABNORMAL) LIPID PROFILE (08/17/2023 8:14 AM CDT) [facility] Signature Cholesterol 204(H) 100 - 199 mg/dL [facility] INSURANCE BILL Triglycerides 55 0 - 149 mg/dL [facility] INSURANCE BILL HDL Cholesterol 77 >39 mg/dL [facility] INSURANCE B[facility] VLDL Calculated 10 5 - 40 mg/dL [facility] INSURANCE BILL LDL Calculated 117(H) 0 - 99 mg/dL [facility] INSURANCE BILL Comment NOT AVAILABLE [facility] INSURANCE BILL Comment: FASTING Result cannot be obtained for this observation. Blood BLOOD SPECIMEN / Unknown 08/17/2023 8:14 AM CDT 08/17/2023 Narrative Resulting Agency Comment [facility]: [facility] [address] ??[facility] [phone] Urvashi Farnsworth APRN-PIG MACHINE CRANE OPERATOR LAB - CHEMISTRY ORDERABLES Performing Organization Address City/[facility]/ZIP Co de Phone Number [facility] INSURANCE BILL [address] [place] [address] documented in this encounter Visit Diagnoses Diagnosis Encounter for medical examination to establish care- Primary Follow-up exam after treatment Unspecified follow-up examination Oral lichen planus Other lichen, not elsewhere classified 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 Lipid screening Screening for lipoid disorders Thyroid disorder screen Screening for thyroid disorder Screening for deficiency anemia Screening for other and unspecified deficiency anemia Diabetes mellitus screening Screening for diabetes mellitus Screen for STD (sexually transmitted disease) Screening examination for venereal disease Encounter for screening for metabolic disorder documented in this encounter Administered Medications Administered Medications Medication Order MAR Action Action Date Dose Rate Site PPD Given 07/16/2013 PPD Given 05/24/2012 PPD Given 07/06/2014 documented in this encounter Care Teams Actuarial Technician Relationship Specialty Start Date End Date Carmen Day MD [address] [place] [address] PCP - General Internal Medicine 07/27/23 10/23/23 documented as of this encounter
--- OUTSIDE RECORDS SUMMARY | 2024-11-12 02:47 | XMS_ITS | Encounter Summary ---
Author Organization [facility] Address [address] [place] [address]. [place], [place] [address] [place] [address] Care Team Providers Care Trimmer Buffing Wheel Name Role Phone None, Provider Primary Care Provider Unavaila ble Encounter Details Date Type Department Care Team (Late st Contact Info) Description 01/16/2020 Orders Only [facility] [place] [address] Philomena Velázquez NP [address] [place] [address] [phone] Social History Tobacco Use Types Packs/Day Years Used Date Smoking Tobacco: Never Smokeless Tobacco: Never Alcohol Use Standard Drinks/Week Comments Yes 0 (1 standard drink = 0.6 oz pur e alcohol) Sex and Gender Information Value Date Recorded Sex Assigned at Not on file Legal Sex Male 4:47 PM CDT Gender Identity Not on file Sexual Orientation Not on file documented as of this encounter Plan of Treatment Not on file documented as of this encounter Results * (ABNORMAL) CBC W/DIFF AUTOMATED (01/16/2020 4:05 PM HEMMING AND TACKING MACHINE OPERATOR) WBC 7.4 4.5 - 11.0 x10'3/uL 01/16/2020 5:55 PM HEMMING AND TACKING MACHINE OPERATOR [facility] RBC 4.74 4.70 - 6.10 x10'6/uL 01/16/2020 5:55 PM HEMMING AND TACKING MACHINE OPERATOR [facility] HGB 14.0 14.0 - 18.0 G/DL 01/16/2020 5:55 PM [facility] HCT 41.2(L) 43.0 - 54.0 % 01/16/2020 5:55 PM [facility] MCV 86.9 80.0 - 94.0 FL 01/16/2020 5:55 PM [facility] MCH 29.5 27.0 - 31.0 PG 01/16/2020 5:55 PM [facility] MCHC 34.0 32.0 - 36.0 G/DL 01/16/2020 5:55 PM [facility] RDW 12.5 11.5 - 14.5 % 01/16/2020 5:55 PM [facility] PLT 143 130 - 400 x10'3/uL 01/16/2020 5:55 PM [facility] MPV 10.9 9.3 - 12.2 FL 01/16/2020 5:55 PM [facility] DIFFERENTIAL TYPE AUTOMATED DIFFERENTIAL 01/16/2020 5:55 PM [facility] NEUTROPHILS % 79.3 % 01/16/2020 5:55 PM [facility] LYMPHOCYTES % 11.4 % 01/16/2020 5:55 PM [facility] MONOCYTES % 8.5 % 01/16/2020 5:55 PM [facility] EOSINOPHILS 0.1 % 01/16/2020 5:55 PM [facility] BASOPHILS 0.3 % 01/16/2020 5:55 PM [facility] IMMATURE GRANS % 0.4 % 01/16/20 20 5:55 PM [facility] ABS. NEUTROPHILS TOTAL 5.86 1.80 - 7.70 x10'3/uL 01/16/2020 5:55 PM [facility] ABS. LYMPHOCYTES 0.84(L) 1.00 - 4.80 x10'3/uL 01/16/2020 5:55 PM HEMMING AND TACKING MACHINE OPERATOR [facility] ABS. MONOCYTES 0.63 0.30 - 0.82 x10'3/uL 01/16/2020 5:55 PM HEMMING AND TACKING MACHINE OPERATOR [facility] ABS. EOSINOPHILS 0.01(L) 0.04 - 0.54 x10'3/uL 01/16/2020 5:55 PM HEMMING AND TACKING MACHINE OPERATOR [facility] ABS. BASOPHILS 0.02 0.01 - 0.08 x10'3/uL 01/16/2020 5:55 PM HEMMING AND TACKING MACHINE OPERATOR [facility] ABS. IMMATURE GRANULOCYTES 0.03 0.00 - 0.49 x10'3/uL 01/16/2020 5:55 PM [facility] 01/16/2020 4:05 PM HEMMING AND TACKING MACHINE OPERATOR Philomena Velázquez NP LABORATORY Final Result [facility] [address] [place] [address], documented in this encounter Visit Diagnoses Diagnosis Fever- Primary Fever, unspecified documented in this encounter Care Teams Trimmer Buffing Wheel Relationship Specialty Start Date End Date None, Provider, PCP - General 05/12/19 documented as of this encounter
--- OUTSIDE RECORDS SUMMARY | 2024-11-12 02:47 | XMS_ITS | Patient Health Summary ---
Author Organization [facility] Address [address] [facility] [place] [address] Care Team Providers Care Medical Services Coordinator Name Role Phone Urvashi Farnsworth APRN-AUTOMATED EQUIPMENT ENGINEER TECHNICIAN Unavailable [phone] Urvashi Farnsworth FARM EQUIPMENT ENGINEER-AUTOMATED EQUIPMENT ENGINEER TECHNICIAN Primary Care Provider + Note from [facility],non-owned Affiliates and Associated Physician Practices is amultiple site organization consisting of ambulatory clinics and hospital sitesin [place], [place], [place] and [place]. This disclosure is being madepursuant to the Care Everywhere program and may not contain all information available regarding this patient. Last updated 18.[facility] Allergies * Sulfa Antibiotics(Other) -Medium Criticality * Sulfa Drugs(Urticaria) -Medium Criticality Medications * Be aware that medications may not be up to date on this document. Alwaysverify current medications with the patient. * predniSONE (Deltasone) 20 MG tablet(Started 06/18/2023) TAKE 3 TABLETS BY MOUTH DAILY FOR 3 DAYS THEN TAKE 2 TABLETS BY MOUTH DAILY FOR 3 DAYS THEN TAKE 1 TABLET BY MOUTH DAILY FOR 3 DAYS * Cod Liver Oil * triamcinolone acetonide (Kenalog In Orabase) 0.1 % paste(Started 07/31/2023) Take by mouth once daily 3 refills by 07/30/2024 Active Problems Problem Noted Date Diagnosed Date Oral inflammation 05/23/2023 07/27/2023 Left knee pain 04/04/2019 07/27/2023 Immunizations * Covid Pfizer primary monovalent 12+ yr 0.3mL Purple cap(Given 12/15/2020, 11/23/2020) * FLU VACCINE TRI IIV3 SPLIT PF IM (FLUVIRIN)(Given 09/06/2021) * HEP A PED and ADULT, HISTORIC VACCINE(Given 09/30/2012, 03/22/2012) * HEP B VACCINE, PED/ADOL(Given 02/25/1999, 09/03/1998, 08/06/1998) * HEP B, HISTORIC VACCINE(Given 02/25/1999, 09/03/1998, 08/06/1998) * INFLUENZA(Given 09/07/2022, 09/06/2020, 09/18/2019, 08/31/2014, 08/27/2013) * INFLUENZA VACCINE, CELL CULTURE, QUADR. (FLUCELVAX QUADRIVALENT; 6MO+) (CCIIV4)(Given 09/02/2017) * INFLUENZA VACCINE, QUADR. (FLUZONE; FLULAVAL; FLUARIX; AFLURIA QUADRIVALENT; 6MO+), 0.5 ML (IIV4)(Given 11/08/2016) * MENINGOCOCCAL MCV4O(Given 09/30/2022) * MENINGOCOCCAL, HISTORIC VACCINE(Given 03/22/2012) * MMR(Given 06/07/1991, 06/07/1981) * POLIO IPV(Given 1980, 1980, 1980, 1980) * TD (AGE 7-ADULT)(Given 01/18/2005) * TDAP (7yrs+)(Given 03/22/2012) * TYPHOID IM(Given 08/05/2022) * Td (Adult), 2 Lf Tetanus Toxoid, Adsorbed, Pf(Given 04/06/2022) * VARICELLA(Given 01/07/1990) * YELLOW FEVER(Given 08/05/2022) Social History Tobacco Use Types Packs/Day Years [...] on file Sexual Orientation Not on file Last Filed Vital Signs Vital Sign Reading [...] Mass Index 25.38 07/27/2023 9:13 AM CDT Procedures * INTERPRETATION REFLEXED(Performed 08/17/2023) Performed for Screen for STD (sexually transmitted disease) * HIV-1 HIV-2 ANTIBODY + HIV P24 AG PANEL(Performed 08/17/2023) Performed for Screen for STD (sexually transmitted disease) * HEPATITIS C ANTIBODY W RFLX PCR(Performed 08/17/2023) Performed for Screen for STD (sexually transmitted disease) * HEMOGLOBIN A1C(Performed 08/17/2023) Performed for Diabetes mellitus screening * TSH REFLEX FREE T4(Performed 08/17/2023) Performed for Thyroid disorder screen * CBC W AUTO DIFFERENTIAL(Performed 08/17/2023) Performed for Screening for deficiency anemia * COMPREHENSIVE METABOLIC PANEL(Performed 08/17/2023) Performed for Diabetes mellitus screening, Encounter for screening for metabolic disorder * LIPID PROFILE(Performed 08/17/2023) Performed for Lipid screening Results * INTERPRETATION REFLEXED (08/17/2023 8:14 AM CDT) Interpretation [facility] INSURANCE BILL Comment: Not infected with HCV unless early or acute infection is suspected (which may be delayed in an immunocompromised individual), or other evidence exists to indicate HCV infection. FASTING 08/17/2023 8:14 AM CDT 08/17/2023 Narrative Resulting Agency Comment Lab Testing performed at: [facility] [address] [facility] [phone] Urvashi Farnsworth FARM EQUIPMENT ENGINEER-AUTOMATED EQUIPMENT ENGINEER TECHNICIAN LAB - SEROLOGY O RDERABLES [facility] INSURANCE BILL [address] [place] [address] * HEPATITIS C ANTIBODY W RFLX PCR (08/17/2023 8:14 AM CDT) Pathologist [facility] Hepatitis C Antibody Non Reactive Non Reactive [facility] INSURANCE BILL Comment:FASTING Blood BLOOD SPECIMEN / Unknown 08/17/2023 8:14 AM CDT 08/17/2023 Narrative Resulting Agency Comment Lab Testing performed at: [facility] [place], [place] [address] ??[facility] [phone] Urvashi Farnswotrh FARM EQUIPMENT ENGINEER-AUTOMATED EQUIPMENT ENGINEER TECHNICIAN LAB - CHEMISTRY ORDERABLES [facility] INSURANCE BILL [address] [place] [address] * HIV-1 HIV-2 ANTIBODY + HIV P24 AG PANEL (08/17/2023 8:14 AM CDT) Pathologist [facility] HIV Screen 4th Generation w Reflex Non Reactive Non Reactive [facility] INSURANCE BILL Comment: HIV Negative HIV-1/HIV-2 antibodies and HIV-1 p24 antigen were NOT detected. There is no laboratory evidence of HIV infection. FASTING Blood BLOOD SPECIMEN / Unknown 08/17/2023 8:14 AM CDT 08/17/2023 Narrative Resulting Agency Comment Lab Testing performed at: [facility] [place], [place] [address] ??[facility] [phone] Urvashi Farnsworth FARM EQUIPMENT ENGINEER-AUTOMATED EQUIPMENT ENGINEER TECHNICIAN LAB - CHEMISTRY ORDERABLES [facility] INSURANCE BILL [address] [place] [address] * TSH REFLEX FREE T4 (08/17/2023 8:14 AM CDT) Pathologist [facility] TSH 0.794 0.450 - 4.500 uIU/mL [facility] INSURANCE BILL Comment:FASTING Blood BLOOD SPECIMEN / Unknown 08/17/2023 8:14 AM CDT 08/17/2023 Narrative Resulting Agency Comment Lab Testing performed at: [address] ??[facility] [phone] Urvashi Mena Javad FARM EQUIPMENT ENGINEER-[facility] LAB - CHEMISTRY ORDERABLES Performing Organization Address [facility]/ZIP Co de Phone Number [facility] INSURANCE BILL [address] [place] [address] * (ABNORMAL) HEMOGLOBIN A1C (08/17/2023 8:14 AM CDT) Pathologist [facility] Hemoglobin A1c 5.8(H) 4.8 - 5.6 % [facility] INSURANCE BILL Comment: ? . ? Prediabetes: 5.7 - 6.4 ? Diabetes: >6.4 ? Glycemic control for adults with diabetes: <7.0 FASTING Blood BLOOD SPECIMEN / Unknown 08/17/2023 8:14 AM CDT 08/17/2023 Narrative Resulting Agency Comment Lab Testing performed at: [address] ??[facility] [phone] Urvashi Farnsworth [facility] LAB - CHEMISTRY ORDERABLES Performing Organization Address [facility] Co de Phone Number [facility] INSURANCE BILL [address] [place] [address] * CBC WITH DIFFERENTIAL (08/17/2023 8:14 AM CDT) Pathologist [facility] WBC 7.3 3.4 - 10.8 x10E3/uL [facility] [...] Resulting Agency Comment Lab Testing performed at: [facility] [address] [facility] [phone] Urvashi Farnsworth FARM EQUIPMENT ENGINEER-AUTOMATED EQUIPMENT ENGINEER TECHNICIAN LAB - HEMATOLOGY ORDERABLES [facility] INSURANCE BILL [address] [place] [address] * (ABNORMAL) COMPREHENSIVE METABOLIC PANEL (08/17/2023 8:14 [...] Resulting Agency Comment Lab Testing performed at: [address] ??[facility] [phone] Urvashi Farnsworth FARM EQUIPMENT ENGINEER-AUTOMATED EQUIPMENT ENGINEER TECHNICIAN LAB - CHEMISTRY ORDERABLES [facility] INSURANCE BILL [address] [place] [address] * (ABNORMAL) LIPID PROFILE (08/17/2023 8:14 AM CDT) Cholesterol 204(H) 100 - 199 mg/dL [facility] [...] Agency Comment Lab Testing performed at: [facility] [address] ??[facility] [phone] Urvashi Farnsworth APRN-AUTOMATED EQUIPMENT ENGINEER TECHNICIAN LAB - CHEMISTRY ORDERABLES [facility] INSURANCE BILL [address] [place] [address] Care Teams Medical Services Coordinator Relationship Specialty Start Date End Date Urvashi Farnsworth APRN-ORA [address] [place] [address] PCP - General Nurse Practitioner 10/24/23 Urvashi Farnsworth APRN-ORA [address] [place] [address] Nurse Practitioner Nurse Practitioner 08/08/23
--- OUTSIDE RECORDS SUMMARY | 2024-11-12 02:47 | XMS_ITS | Encounter Summary ---
Author Organization [facility] Address [address] [place] [address] Care Team Providers Care Digital Measurement Advisor Name Role Phone Unavailable Primary Care Provider Unavailabl e Encounter Details Date Type Department Care Team (Latest Contact Info) Description 11/23/2020 Travel Social History Tobacco Use Types Packs/Day Years Used Date Smoking Tobacco: Never Assessed Sex and Gender Information Value Date Recorded Sex Assigned at Not on file Gender Identity Not on file Sexual Orientation Not on file COVID-19 Exposure Response Date Recorded In the last month, have you been in contact with someone who was confirmed or suspected to have Coronavirus / COVID-19? No / Unsure 11/23/2020 9:15 AM COIN MACHINE ASSEMBLER documented as of this encounter Plan of Treatment Not on file documented as of this encounter Visit Diagnoses Not on filedocumented in this encounter
--- OUTSIDE RECORDS SUMMARY | 2024-11-12 02:47 | XMS_ITS | Encounter Summary ---
Author Organization [facility] Address [address] [place] [address]. [place], [place] [address] [place] [address] Care Team Providers Care Cto Name Role Phone Jose Braga MD Primary Care Provider Unavailable Encounter Details Date Type Department Care Team (Late st Contact Info) Description 01/17/2014 [facility] [address] [facility] [place] [address] Comfort Zamarripa MD [address] [facility] [address] [place] [address] Social History Tobacco Use Types Packs/Day Years Used Date Smoking Tobacco: Never Assessed Sex and Gender Information Value Date Recorded Sex Assigned at Not on file Legal Sex Male 4:47 PM CDT Gender Identity Not on file Sexual Orientation Not on file documented as of this encounter Plan of Treatment Not on file documented as of this encounter Visit Diagnoses Diagnosis Acute upper respiratory infection Acute upper respiratory infections of unspecified site documented in this encounter Care Teams Cto Relationship Specialty Start Date End Date Jose Braga MD PCP - General 01/17/14 documented as of this encounter
--- OUTSIDE RECORDS SUMMARY | 2024-11-12 02:47 | XMS_ITS | Clinical Summary ---
Author Organization [facility] Address [address] [place] [address] Care Team Providers Care Process Expert Name Role Phone Urvashi Farnsworth APRN-ORA Unavailable [phone] Urvashi Farnsworth APRN-ORA Primary Care Provider + Source Comments [facility],non-owned Affiliates and Associated Physician Practices is amultiple site organization consisting of ambulatory clinics and hospital sitesin [place], [place] and [place]. This disclosure is being madepursuant to the Care Everywhere program and may not contain all information available regarding this patient. Last updated 18.[facility] Allergies Active Allergy Reactions Criticality Noted Date Comments Sulfa Antibiotics Other Medium 04/07/2019 Sulfa Drugs Urticaria Medium 04/07/2019 Medications * Be aware that medications may not be up to date on this document. Alwaysverify current medications with the patient. Medication Sig Dispensed Refills Start Date End Date Status predniSONE (Deltasone) 20 MG tablet TAKE 3 TABLETS BY MOUTH DAILY FOR 3 DAYS THEN TAKE 2 TABLETS BY MOUTH DAILY FOR 3 DAYS THEN TAKE 1 TABLET BY MOUTH DAILY FOR 3 DAYS 06/18/2023 Active Cod Liver Oil Active triamcinolone acetonide (Kenalog In Orabase) 0.1 % paste Take by mouth once daily 5 g 3 07/31/2023 Active Active Problems Problem Noted Date Diagnosed Date Oral inflammation 05/23/2023 07/27/2023 Left knee pain 04/04/2019 07/27/2023 Immunizations Name Administration Dates Next Due [employer] primary monoval ent 12+ yr 0.3mL Purple cap 12/15/2020,11/23/2020 FLU VACCINE TRI IIV3 SPLIT P F IM (FLUVIRIN) 09/06/2021 HEP A PED and ADULT, HISTORIC VACCINE 09/30/2012 ,03/22/2012 HEP B VACCINE, PED/ADOL 02/25/1999,09/03/1998, HEP B, HISTORIC VACCINE 02/25/1999,09/03/1998, INFLUENZA 09/07/2022, 0,09/18/2019,08/31,08/27/2013 INFLUENZA VACCINE, CELL CULT URE, QUADR. (FLUCELVAX QUADRIVALENT; 6MO+) (CCIIV4) 09/02/2017 INFLUENZA VACCINE, QUADR. (F LUZONE; FLULAVAL; FLUARIX; AFLURIA QUADRIVALENT; 6MO+), 0.5 ML (IIV4) 11/08/2016 MENINGOCOCCAL MCV4O 09/30/2022 MENINGOCOCCAL, HISTORIC VACCINE 03/22/2012 MMR 06/07/1991,06/07/1981 POLIO IPV 1980, 0,1980,03/26 TD (AGE 7-ADULT) 01/18/2005 TDAP (7yrs+) 03/22/2012 TYPHOID IM 08/05/2022 Td (Adult), 2 Lf Tetanus Tox oid, Adsorbed, Pf 04/06/2022 VARICELLA 01/07/1990 YELLOW FEVER 08/05/2022 Family History Medical History Relation Name Comments Hypertension Brother Sleep Disorder - Sleep apnea Brother Cancer - Esophageal Father Barrets esophagus Hyperlipidemia Father Hypertension Father None Known Maternal Grandfather Cancer - Lung Maternal Grandmother Hypertension Mother Cancer - Pancreatic Paternal Grandfather Cancer - Lung Paternal Grandmother Relation Name Status Comments Brother Alive Father Alive Maternal Grandfather Maternal Grandmother Mother Alive Paternal Grandfather Paternal Grandmother Social History Tobacco Use Types Packs/Day Years [...] Mass Index 25.38 07/27/2023 9:13 AM CDT Plan of Treatment Health Maintenance Due Date Last Done Comments DEPRESSION SCREENING 11/26/2023 07/27/2023 COVID-19 VACCINE ( season) 2024 12/15/2020, 11/23/2020 INFLUENZA VACCINE (#1) 2024 , 09/07/2022, 09/06/2021, Additional history exists SCREENING FOR DIABETES 08/17/2026 08/17/2023, 2022 LIPID TESTING 08/17/2028 08/17/2023 ZOSTER VACCINE (1 of 2) 01/26/2030 DTAP/TDAP/TD VACCINES (4 - Td or Tdap) 04/06/2032 04/06/2022, 03/22/2012, 01/18/2005 HEPATITIS B VACCINE Completed 02/25/1999, 02/25/1999, 09/03/1998, Additional history exists MENINGOCOCCAL VACCINE Aged Out 09/30/2022, 012 No longer eligible based on patient's age to complete this topic HEPATITIS C SCREENING Completed 08/17/2023 HIV SCREENING Completed 08/17/2023 HIB VACCINE Aged Out No longer eligi ble based on patient's age to complete this topic HPV VACCINE Aged Out No longer eligi ble based on patient's age to complete this topic PNEUMOCOCCAL VACCINE Aged Out No long er eligible based on patient's age to complete this topic Procedures Procedure Name Priority Date/Time Associated Diagnosis Comments COMPREHENSIVE METABOLIC PANEL Routine 08/17/2023 8:14 AM CDT Diabetes mellitus screening Encounter for screening for metabolic disorder LIPID PROFILE Routine 08/17/2023 8:14 AM CDT Lipid screening HEPATITIS C ANTIBODY W RFLX PCR Routine 08/17/2023 8:14 AM CDT Screen for STD (sexually transmitted disease) HIV-1 HIV-2 ANTIBODY + HIV P24 AG PANEL Routine 08/17/2023 8:14 AM CDT Screen for STD (sexually transmitted disease) from Last 3 Months or Most Recently Relevant to Health Maintenance Results * HEPATITIS C ANTIBODY W RFLX PCR (08/17/2023 8:14 AM CDT) Hepatitis C Antibody Non Reactive Non Reactive [facility] INSURANCE BILL Comment:FASTING Blood BLOOD SPECIMEN / Unknown 08/17/2023 8:14 AM CDT 08/17/2023 Narrative Resulting Agency Comment [facility]: [facility] [address] ??[facility] [phone] Urvashi Farnsworth APRN-LIPSTICK MOLDER LAB - CHEMISTRY ORDERABLES Performing Organization Address [facility] Co de Phone Number [facility] INSURANCE BILL [address] [place] [address] * HIV-1 HIV-2 ANTIBODY + HIV P24 [...] Resulting Agency Comment Lab Testing performed at: [facility] [address] ??[facility] [phone] Urvashi Farnsworth APRN-LIPSTICK MOLDER LAB - CHEMISTRY ORDERABLES [facility] INSURANCE BILL [address] [place] [address] * (ABNORMAL) COMPREHENSIVE METABOLIC PANEL (08/17/2023 8:14 [...] Resulting Agency Comment Lab Testing performed at: [address] ??[facility] [phone] Urvashi Farnsworth STRATEGIC BUYER-LIPSTICK MOLDER LAB - CHEMISTRY ORDERABLES [facility] INSURANCE BILL [address] [place] [address] * (ABNORMAL) LIPID PROFILE (08/17/2023 8:14 AM [...] Resulting Agency Comment Lab Testing performed at: [facility] ??[facility] [phone] Urvashi STARK LAB - CHEMISTRY ORDERABLES [facility] INSURANCE BILL [address] [place] [address] from Last 3 Months or Most Recently Relevant to Health Maintenance Care Teams Process Expert Relationship Specialty Start Date End Date Urvashi Farnsworth APRN-LIPSTICK MOLDER [address] [place] [address] PCP - General Nurse Practitioner 10/24/23 Urvashi Farnsworth APRN-LIPSTICK MOLDER [address] [place] [address] (work) Nurse Practitioner Nurse Practitioner 08/08/23
--- OUTSIDE RECORDS SUMMARY | 2024-11-12 02:47 | XMS_ITS | Encounter Summary ---
Author Organization [facility] Address [address] [place] [address] Care Team Providers Care Mis Director Name Role Phone Carmen Day MD Primary Care Provider Urvashi Farnsworth DEVICE PROCESSING ENGINEER-ACCOUNT SUPERVISOR Unavailable [phone] Encounter Details Date Type Department Care Team (Late st Contact Info) Description 08/21/2023 Orders Only [facility] - [facility] [address] [place] [address] Urvashi Farnsworth, DEVICE PROCESSING ENGINEER-ACCOUNT SUPERVISOR [address] [place] [address] High serum albumin ; High bilirubin Social History Tobacco Use Types Packs/Day Years Used Date Smoking Tobacco: Never Passive Smoke Exposure: Never Smokeless Tobacco: Never Alcohol Use Standard Drinks/Week Comments Not Asked 0 (1 standard drink = 0.6 oz pur e alcohol) socially PHQ-2 Answer Date Recorded Patient Health Questionnaire-2 Score 0 07/27/2023 Sex and Gender Information Value Date Recorded Sex Assigned at Not on file Gender Identity Not on file Sexual Orientation Not on file documented as of this encounter Plan of Treatment Scheduled Orders Name Type Priority Associated Diagnoses Orde r Schedule HEPATIC FUNCTION PANEL Lab Routine High serum albumin High bilirubin Ordered: 08/21/2023 documented as of this encounter Visit Diagnoses Diagnosis High serum albumin- Primary High bilirubin documented in this encounter Care Teams Mis Director Relationship Specialty Start Date End Date Carmen Day MD [address] [place] [address] PCP - General Internal Medicine 07/27/23 10/23/23 Urvashi Farnsworth, DEVICE PROCESSING ENGINEER-ACCOUNT SUPERVISOR [address] [place] [address] Nurse Practitioner Nurse Practitioner 08/08/23 documented as of this encounter
--- OUTSIDE RECORDS SUMMARY | 2024-11-12 02:47 | XMS_ITS | Encounter Summary ---
Author Organization [facility] Address [address] [place] [address]. [place], [place] [address] [place] [address] Care Team Providers Care Senior Courtroom Clerk Name Role Phone None, Provider Primary Care Provider Unavaila ble Encounter Details Date Type Department Care Team (Latest Contact Info) Description 01/16/2020 Travel Social History Tobacco Use Types Packs/Day [...] Diagnoses Not on filedocumented in this encounter Care Teams Senior Courtroom Clerk Relationship Specialty Start Date End Date None, Provider, PCP - General 05/12/19 documented as of this encounter
--- OUTSIDE RECORDS SUMMARY | 2024-11-12 02:47 | XMS_ITS | Encounter Summary ---
Author Organization [facility] Address [address] [place] [address]. [place], [place] [address] [place] [address] Care Team Providers Care Chicken Handler Name Role Phone None, Provider MD Primary Care Provider Unavaila ble Reason for Visit * Reason Comments Sore Throat Encounter Details Date Type Department Care Team (Latest Contact Info) Description 05/12/2019 2:40 PM CDT - 05/12/2019 3:29 PM CDT Hospital Encounter [place] [id number] [place] [address] Claudia Nicholas, PA [address] [address] Sore Throat Discharge Disposition: Home or Self Care (Routine Discharge) Social History Tobacco Use Types Packs/Day Years [...] Sign Reading Time Taken Comments Blood Pressure 127/63 05/12/2019 2:42 PM CDT Pulse 57 05/12/2019 2:42 PM CDT Temperature 37 ??C (98.6 ??F) 05/12/2019 2:42 PM CDT Respiratory Rate 20 05/12/2019 2:42 PM CDT Oxygen Saturation 99% 05/12/2019 2:42 PM CDT Inhaled Oxygen Concentration - - Weight 81.6 kg (180 lb) 05/12/2019 2:42 PM CDT Height 177.8 cm (5' 10 ) 05/12/2019 2:42 PM CDT Body Mass Index 25.83 05/12/2019 2:42 PM CDT documented in this encounter Discharge Instructions * Discharge Instructions* RUTHIE De La Torre - 05/12/2019 3:04 PM CDT Thank you for giving us the opportunity to care for you today. If at any point you are becoming more ill, please call your doctor, return here, or go to the ER. You are always welcome back. If you have any questions about this visit, concerns about your symptoms, questions about your medications or other concerns, please give us a call... - TAWNY Payne PA-C - Emergency Medicine Provider ADDITIONAL DISCHARGE INSTRUCTIONS: --Please follow all the instructions that we have discussed or are provided here. Take all medications as directed. --While the tests and exam we have performed at Urgent Care did not show anything dangerous or lifethreatening it is important for you to follow up with your doctor for further evaluation of your symptoms. It is also important to return to Urgent Care of the ER if your symptoms become worse or youhave new or further concerns. -- Please mention to your follow-up physician that you were at urgent care and request that they review your labs and/or imaging to ensure all findings are followed up on. --Again, it was a pleasure taking care of you. * Attachments The following attachments cannot be sent through Care Everywhere. * Viral Upper Respiratory Infection Discharge Instructions, Adult (Citizen Of [place]) * Viral Pharyngitis (Citizen Of [place]) documented in this encounter Medications at Time of Discharge benzonatate (TESSALON PERLES) 100 MG capsule Take 1 capsule (100 mg total) by mouth 3 (three) times daily as needed for Cough. 20 capsule 05/12/2019 05/19/2019 documented as of this encounter ED Notes * RUTHIE De La Torre - 05/12/2019 2:[address] [facility] [place], [place] HISTORICAL INFORMATION Primary Care Doctor: Provider MD Ammon Patient information was obtained primarily from the patient, nursing notes. History/Exam limitations: None Provider at Bedside Date/Time Event User Comments 05/12/19 6447 Provider at Bedside Assessing Patient CLAUDIA NICHOLAS CHIEF COMPLAINT Sore Throat Chief Complaint Patient presents with ??? Sore Throat HPI Tobias Del Toro is a 39-year-old male with a PMHx of tonsillectomy who presents sore throat, dry cough, subjective fever. States on Sunday he experienced ear pain, congestion, chills and a subjective fever. States that today he is feeling better. He said he has concern for strep throat. Denies rashes, sinus tenderness, shortness of breath, chest pain, urinary changes including dark urine. PAST MEDICAL HISTORY Past Medical History: Diagnosis Date ??? Patient denies medical problems SURGICAL HISTORY Past Surgical History: Procedure Laterality Date ??? TONSILLECTOMY CURRENT MEDICATIONS No current facility-administered medications for this encounter. No current outpatient medications on file. ALLERGIES Allergies Allergen Reactions ??? Sulfa Antibiotics Hives FAMILY HISTORY Family History Problem Relation Name Age of Onset ??? Hypertension Father ??? Hyperlipidemia Father SOCIAL HISTORY Social History Socioeconomic History ??? Marital status: Spouse name: Not on file ??? Number of children: Not on file ??? Years of education: Not on file ??? Highest education level: Not on file Occupational History ??? Not on file Social Needs ??? Financial resource strain: Not on file ??? Food insecurity: Worry: Not on file Inability: Not on file ??? Transportation needs: Medical: Not on file Non-medical: Not on file Tobacco Use ??? Smoking status: Never Smoker ??? Smokeless tobacco: Never Used Substance and Sexual Activity ??? Alcohol use: Yes ??? Drug use: No ??? Sexual activity: Not on file Lifestyle ??? Physical activity: Days per week: Not on file Minutes per session: Not on file ??? Stress: Not on file Relationships ??? Social connections: Talks on phone: Not on file Gets together: Not on file Attends taoism service: Not on file Active member of club or organization: Not on file Attends meetings of clubs or organizations: Not on file Relationship status: Not on file ??? Intimate partner violence: Fear of current or ex partner: Not on file Emotionally abused: Not on file Physically abused: Not on file Forced sexual activity: Not on file Other Topics Concern ??? Not on file Social History Narrative ??? Not on file REVIEW OF SYSTEMS Constitutional: + See HPI. Denies weight loss or weakness. Skin: Denies rash. HEENT: +See HPI Respiratory: Denies cough or shortness of breath. Cardiovascular: Denies chest pain, palpitations or swelling. GI: Denies abdominal pain, nausea, vomiting, or diarrhea. : Denies dysuria, urinary frequency. Musculoskeletal: Denies back pain. Neurologic: Denies headache, focal weakness or sensory changes. Psychiatric: Denies depression, suicidal ideation or homicidal ideation. See HPI for further details. All systems negative except as marked. Physical Exam VITAL SIGNS: Filed Vitals: 05/12/19 1442 BP: 127/63 Pulse: 57 Resp: 20 Temp: 98.6 ??F (37 ??C) TempSrc: Temporal SpO2: 99% Weight: 81.6 kg (180 lb) Height: 5' 10 (1.778 m) Constitutional: Well developed, No acute distress, Non-toxic appearance. Integument: Warm, Dry, No erythema, No rash. HEENT: Posterior pharynx with erythema. Tonsillectomy noted. TMs with good light reflex bilaterally. External ear canals no erythema or discharge noted. No sinus tenderness or cervical lymphadenopathy. Neck- Normal range of motion, Supple Back- Normal range of motion, No gross abnormality Respiratory: Normal breath sounds, No respiratory distress. Cardiovascular: Normal heart rate, Normal rhythm Musculoskeletal: Good ROM, no deformities noted Neurologic: Alert & oriented x 3, No focal deficits noted. Psychiatric: Affect normal, Judgment normal, Mood normal. EKG (interpreted by ED provider) No results found for this visit on 05/12/19. LABORATORY Labs Reviewed RAPID STREP A STREP A, DNA RADIOLOGY No orders to display PROCEDURES Procedures MDM Rapid strep is negative. Centor criteria 0. Due to the patient's physical exam findings combined with his history this is likely viral. Explained to the patient the risk and benefits of antibiotic use. Patient is in agreement since he feels better than he did Sunday and continues to improve. Instructed patient to continue using ibuprofen for symptom relief. Instructed him to return if he developsdark urine, worsening symptoms, or any other concerns. He will follow-up with his PCP I have discussed today's findings with the patient and provided information regarding the likely diagnosis. The patient has been given information regarding their treatment, follow up and concerning symptoms for which they should seek urgent or emergent attention. I have expressed the the importance of seeking attention should there be any new, or worsening symptoms or persistence of their condition. The patient is stable at discharge and has verbalized understanding of these instructions. Impression/Disposition SNOMED CT(R) 1. Viral URI VIRAL UPPER RESPIRATORY TRACT INFECTION 2. Viral pharyngitis VIRAL PHARYNGITIS Disposition: Discharge RUTHIE DE LA TORRE PA 05/12/19 3847 Cosigned by Geoffrey Glass MD at 05/12/2019 5:34 PM CDT * Bev Givens RN - 05/12/2019 2:46 PM CDT NASAL CONGESTION WITH SORE THROAT BODY ACHES AND CHILLS STARTING Sunday INTO Sunday. documented in this encounter Plan of Treatment Not on file documented as of this encounter Procedures Procedure Name Priority Date/Time Associated Diagnosis Comments STREP A, DNA STAT 05/12/2019 2:43 PM CDT RAPID STREP A STAT 05/12/2019 2:43 PM CDT documented in this encounter Results * STREP A, DNA (05/12/2019 2:43 PM CDT) STREP A MOLECULAR NEGATIVE NEGATIVE 019 9:52 PM CDT [facility] Comment:SPECIMEN NEGATIVE FO R GROUP A STREPTOCOCCUS BY DNA AMPLIFICATION 05/12/2019 2:43 PM CDT Claudia HENDRICKS MICROBIOLOGY - GENERAL ORDE RABGANGA Final Result Performing Organization Address City/[facility]/ZIP Co de Phone Number [facility] [address] [place] [address], * RAPID STREP A (05/12/2019 2:43 PM CDT) SPECIMEN TYPE THROAT 05/12/2019 2:43 PM CDT [facility] RAPID STREP TEST NEGATIVE NEGATIVE 05/12/2019 2:52 PM CDT [facility] STRUCTURE OF ANTERIOR PORTION OF NECK / Unknown 05/12/2019 2:43 PM CDT Claudia HENDRICKS MICROBIOLOGY - GENERAL ORDE RABGANGA Final Result Performing Organization Address City/[facility]/ZIP Co de Phone Number [facility] [address] [place] [address], documented in this encounter Visit Diagnoses Diagnosis Viral URI- Primary Acute upper respiratory infections of unspecified site Viral pharyngitis Acute pharyngitis documented in this encounter Care Teams Chicken Handler Relationship Specialty Start Date End Date None, Provider, PCP - General 05/12/19 documented as of this encounter
--- OUTSIDE RECORDS SUMMARY | 2024-11-12 02:47 | XMS_ITS | Encounter Summary ---
Author Organization [facility] Address [address] [place] [address] Care Team Providers Care Equipment Validation Engineer Name Role Phone Unavailable Primary Care Provider Unavailabl e Reason for Visit * Reason Onset Date Comments COVID-19 IMMUNIZATION/INJECTION 12/15/2020 Encounter Details Date Type Department Care Team (Latest Contact Info) Description 12/15/2020 9:20 AM GRIEVANCE AND APPEALS SPECIALIST Clinical Support [facility] COVID [address] [place] [phone] Need for vaccination Social History Tobacco Use Types Packs/Day Years [...] COVID-19? No / Unsure 11/23/2020 9:15 AM GRIEVANCE AND APPEALS SPECIALIST documented as of this encounter Patient Instructions * Patient Instructions* Trista Aly RN - 12/15/2020 9:13 AM GRIEVANCE AND APPEALS SPECIALIST Images from the original note were not included. Vaccine recipients are encouraged to enroll in the CDC V-SAFE program for post vaccination monitoring. Sign up with your smartphone's browser at MessageBunker.cdc.gov or Aim your smartphone's camera at this code. VANCE AND APPEALS SPECIALIST documented in this encounter Progress Notes * Trista Aly RN - 12/15/2020 9:13 AM CST COVID screening checklist was reviewed with the patient. The Information sheet was given prior to administration. Injection site aseptically cleansed and injection given per Immunization(s) protocol.See Imm/Injections activity for details. VANCE AND APPEALS SPECIALIST documented in this encounter Plan of Treatment Not on file documented as of this encounter Visit Diagnoses Diagnosis Need for vaccination- Primary Need for prophylactic vaccination and inoculation against unspecified single disease documented in this encounter
--- OUTSIDE RECORDS SUMMARY | 2024-11-12 02:47 | XMS_ITS | Encounter Summary ---
Author Organization [facility] Address [address] [place] [address]. [place], [place] [address] [place] [address] Care Team Providers Care Rod Greaser Name Role Phone Jose Braga MD Primary Care Provider Unavailable Jose Braga MD Primary Care Provider Unavailable Encounter Details Date Type Department Care Team (Late st Contact Info) Description 08/24/[address] [address] [place] [address] Paxton Virgen MD [address] [phone] Social History Tobacco Use Types Packs/Day Years Used Date Smoking Tobacco: Never Assessed Sex and Gender Information Value Date Recorded Sex Assigned at Not on file Legal Sex Male 4:47 PM CDT Gender Identity Not on file Sexual Orientation Not on file documented as of this encounter Plan of Treatment Not on file documented as of this encounter Visit Diagnoses Diagnosis Chronic sinusitis Unspecified sinusitis (chronic) documented in this encounter Care Teams Rod Greaser Relationship Specialty Start Date End Date Jose Braga MD PCP - General 01/17/14 Jose Braga MD PCP - General 08/24/11 documented as of this encounter
--- OUTSIDE RECORDS SUMMARY | 2024-11-12 02:47 | XMS_ITS | Clinical Summary ---
Author Organization [facility] Address [address] [place] [address]. [place], [place] [address] [place] [address] Care Team Providers Care Legal Executive Name Role Phone None, Provider MD Primary Care Provider Unavaila ble Allergies Active Allergy Reactions Criticality Noted Date Comments Sulfa Antibiotics Hives Medium 04/07/2019 Medications No known medications Family History Medical History Relation Comments Hyperlipidemia Father Hypertension Father Relation Status Comments Father Alive Mother Alive Social History Tobacco Use Types Packs/Day Years [...] Mass Index 25.83 05/12/2019 2:42 PM CDT Plan of Treatment Health Maintenance Due Date Last Done Comments Annual Physical 01/26/1983 Hepatitis C 01/26/1998 DTaP, Tdap and Td Vaccines ( 1 - Tdap) 01/26/1999 Hepatitis B Vaccines (1 of 3 - 19+ 3-dose series) 01/26/1999 COVID-19 Vaccine (2023-2 5 season) 2024 Influenza Adult (#1) 2024 HPV Vaccines Aged Out No longer eligi ble based on patient's age to complete this topic Meningococcal Vaccine Aged Out No durga milena eligible based on patient's age to complete this topic Pneumococcal Vaccine: Pediat rics (0 to 5 Years) and At-Risk Patients (6 to 64 Years) Aged Out No longer eligible b ased on patient's age to complete this topic RSV Immunizations Under 20 Months Aged Out No longer eligible based on patient's age to complete this topic Insurance [facility] Care Teams Legal Executive Relationship Specialty Start Date End Date None, Provider, PCP - General 05/12/19
--- OUTSIDE RECORDS SUMMARY | 2024-11-12 02:47 | XMS_ITS | Referral Summary ---
Author Organization [facility] Address [address] [facility] [place] [address] Care Team Providers Care Chin Strap Maker Name Role Phone Urvashi Farnsworth APRN-ORA Unavailable [phone] Urvashi Farnsworth APRN-ORA Primary Care Provider + Source Comments [facility],non-owned Affiliates and Associated Physician Practices is amultiple site organization consisting of ambulatory clinics and hospital sitesin [place], [place], [place] and [place]. This disclosure is being madepursuant to the Care Everywhere program and may not contain all information available regarding this patient. Last updated 18.[facility] Allergies Active Allergy Reactions Criticality Noted Date [...] 07/27/2023 Immunizations Name Administration Dates Next Due Cov[employer]Table Restaurant Reservations primary monoval ent 12+ yr 0.3mL Purple [...] Pf 04/06/2022 VARICELLA 01/07/1990 YELLOW FEVER 08/05/2022 Social History Tobacco Use Types Packs/Day Years [...] 07/27/2023 9:13 AM CDT Plan of Treatment Not on file Procedures Procedure Name Priority Date/Time Associated Diagnosis [...] Resulting Agency Comment Lab Testing performed at: [employer] [address] [place] [address] ??[facility] [phone] Urvashi Farnsworth RESPIRATORY COORDINATOR-WAXER FLOOR LAB - CHEMISTRY ORDERABLES [facility] INSURANCE BILL [address] [place] [address] * HIV-1 HIV-2 ANTIBODY + HIV P24 [...] Resulting Agency Comment Lab Testing performed at: [facility] [address] ??[facility] [phone] Urvashi Farnsworth RESPIRATORY COORDINATOR-WAXER FLOOR LAB - CHEMISTRY ORDERABLES [facility] INSURANCE BILL [address] [place] [address] * (ABNORMAL) COMPREHENSIVE METABOLIC PANEL (08/17/2023 8:14 [...] Agency Comment Lab Testing performed at: [facility] [address] ??[facility] [phone] Urvashi STARK LAB - CHEMISTRY ORDERABLES [facility] INSURANCE BILL [address] [place] [address] * (ABNORMAL) LIPID PROFILE (08/17/2023 8:14 AM [...] Agency Comment Lab Testing performed at: [facility] [address] ??[facility] [phone] Urvashi [facility] - CHEMISTRY ORDERABLES [facility] INSURANCE BILL [address] [place] [address] from Last 3 Months or Most Recently Relevant to Health Maintenance Administered Medications Care Teams Chin Strap Maker Relationship Specialty Start Date End Date Urvashi Farnsworth APRN-CNP [address] [place] [address] PCP - General Nurse Practitioner 10/24/23 Urvashi Farnsworth, SASHA-ORA [address] [place] [address] Nurse Practitioner Nurse Practitioner 08/08/23
--- OUTSIDE RECORDS SUMMARY | 2024-11-12 02:47 | XMS_ITS | Encounter Summary ---
Author Organization [facility] Address [address] [place] [address]. [place], [place] [address] [place] [address] Care Team Providers Care Automotive General Manager Name Role Phone None, Provider Primary Care Provider Unavaila ble Encounter Details Date Type Department Care Team (Latest Contact Info) Description 01/16/2020 4:00 PM RECRUITING ADMINISTRATOR - 01/16/2020 11:59 PM RECRUITING ADMINISTRATOR Hospital Encounter [facility] [place] [address] Philomena Velázquez, ANDRA [address] [place] [phone] Discharge Disposition: Home or Self Care (Routine [...] Procedure Name Priority Date/Time Associated Diagnosis Comments CBC W/DIFF AUTOMATED STAT 01/16/2020 4:05 PM RECRUITING ADMINISTRATOR Fever documented in this encounter Results * (ABNORMAL) CBC W/DIFF AUTOMATED (01/16/2020 4:05 PM RECRUITING ADMINISTRATOR) WBC 7.4 4.5 - 11.0 x10'3/uL 01/16/2020 5:[address] [facility] RBC 4.74 4.70 - 6.10 x10'6/uL 01/16/2020 5:55 PM [facility] HGB 14.0 14.0 - 18.0 G/DL 01/16/2020 5:55 PM [facility] HCT 41.2(L) 43.0 - 54.0 % 01/16/2020 5:55 PM [facility] MCV 86.9 80.0 - 94.0 FL 01/16/2020 5:55 PM [facility] MCH 29.5 27.0 - 31.0 PG 01/16/2020 5:55 PM [facility] MCHC 34.0 32.0 - 36.0 G/DL 01/16/2020 5:55 PM [facility] RDW 12.5 11.5 - 14.5 % 01/16/2020 5:55 PM [facility] PLT 143 130 - 400 x10'3/uL 01/16/2020 5:55 PM [facility] MPV 10.9 9.3 - 12.2 FL 01/16/2020 5:55 PM [facility] DIFFERENTIAL TYPE AUTOMATED DIFFERENTIAL 01/16/2020 5:55 PM [facility] NEUTROPHILS % 79.3 % 01/16/2020 5:55 PM [facility] LYMPHOCYTES % 11.4 % 01/16/2020 5:55 PM [facility] MONOCYTES % 8.5 % 01/16/2020 5:55 PM [facility] EOSINOPHILS 0.1 % 01/16/2020 5:55 PM [facility] BASOPHILS 0.3 % 01/16/2020 5:55 PM [facility] IMMATURE GRANS % 0.4 % 01/16/20 5:55 PM RECRUITING ADMINISTRATOR [facility] ABS. NEUTROPHILS TOTAL 5.86 1.80 - 7.70 x10'3/uL 01/16/2020 5:55 PM RECRUITING ADMINISTRATOR [facility] ABS. LYMPHOCYTES 0.84(L) 1.00 - 4.80 x10'3/uL 01/16/2020 5:55 PM RECRUITING ADMINISTRATOR [facility] ABS. MONOCYTES 0.63 0.30 - 0.82 x10'3/uL 01/16/2020 5:55 PM RECRUITING ADMINISTRATOR [facility] ABS. EOSINOPHILS 0.01(L) 0.04 - 0.54 x10'3/uL 01/16/2020 5:55 PM RECRUITING ADMINISTRATOR [facility] ABS. BASOPHILS 0.02 0.01 - 0.08 x10'3/uL 01/16/2020 5:55 PM RECRUITING ADMINISTRATOR [facility] ABS. IMMATURE GRANULOCYTES 0.03 0.00 - 0.49 x10'3/uL 01/16/2020 5:55 PM RECRUITING ADMINISTRATOR [facility] 01/16/2020 4:05 PM RECRUITING ADMINISTRATOR Philomena Velázquez NP LABORATORY Final Result Performing Organization Address City/State/[facility] Co de Phone Number [facility] [address] [place] [address], [place] [phone] documented in this encounter Visit Diagnoses Diagnosis Fever Fever, unspecified documented in this encounter Care Teams Automotive General Manager Relationship Specialty Start Date End Date None, Provider, PCP - General 05/12/19 documented as of this encounter
--- OUTSIDE RECORDS SUMMARY | 2024-11-12 02:47 | XMS_ITS | Encounter Summary ---
Author Organization [facility] Address [address] [facility] [place] [address] Care Team Providers Care Dermatologist And Dermatopathologist Name Role Phone Unavailable Primary Care Provider Unavailabl e Reason for Visit * Reason Onset Date Comments COVID-19 IMMUNIZATION/INJECTION 11/23/2020 Encounter Details Date Type Department Care Team (Latest Contact Info) Description 11/23/2020 9:10 AM ENVIRONMENTAL MAINTENANCE WORKER Clinical Support [facility] COVID [address] [place] [address] Need for vaccination Social History Tobacco Use [...] COVID-19? No / Unsure 11/23/2020 9:15 AM ENVIRONMENTAL MAINTENANCE WORKER documented as of this encounter Patient Instructions * Patient Instructions* Lavern Nick RN - 11/23/2020 9:19 AM ENVIRONMENTAL MAINTENANCE WORKER Images from the original note were not included. Vaccine recipients are encouraged to enroll in the CDC V-SAFE program for post vaccination monitoring. Sign up with your smartphone's browser at Playteau.cdc.gov or Aim your smartphone's camera at this code. RONMENTAL MAINTENANCE WORKER documented in this encounter Progress Notes * Lavern Nick RN - 11/23/2020 9:19 AM CST COVID screening checklist was reviewed with the patient. The Information sheet was given prior to administration. Injection site aseptically cleansed and injection given per Immunization(s) protocol.See Imm/Injections activity for details. RONMENTAL MAINTENANCE WORKER documented in this encounter Plan of Treatment Not on file documented as of this encounter Visit Diagnoses Diagnosis Need for vaccination- Primary Need for prophylactic vaccination and inoculation against unspecified single disease documented in this encounter
--- OUTSIDE RECORDS SUMMARY | 2024-11-12 02:48 | XMS_ITS | Continuity of Care Document ---
Author Name [facility] Organization [facility] Care Team Providers Care Car Dispatcher Name Role Phone [facility] Unavailable Unavailable Medications Combined list of outpatient medications from [facility] of Defense and [facility] Affairs facilities.Medications provided include 1) outpatient medications from the last 15 months, and 2) patient-reported medications. Medication Details Route Status Patient Instructions Prescription Expires Prescription Number Last Dispense Date Ordering Provider Order Date Order Qty Source AMOXICILLIN (amoxicilli n), 875 MG, TABLET, ORAL, [facility] IKMA, 100 ea. BOTTLE Active [id number] 2023 20 Pharmac y Data Transac tion Service Facilit y Immunizations Combined list of available immunizations from the Department of Defense and Veterans Affairs facilities. Immunization Series Date Given Administered By Site Reaction Lot Number CVX Code Drug Art Specialist Status Comments Source meningococcal oligosacchari de (MCV4O) 2021 [id number] 136 GlaxoSmithKli ne complet ed meningoco ccal oligosacc haride (MCV4O) 09/30/22 Given Ambulat ory Pharmac y influenza virus vaccine, unspecified 2021 TRANSCR IBED 88 Unknown complet ed influenza virus vaccine, unspecifi ed 09/07/22 Given Ambulat ory Pharmac y yellow fever vaccine 2021 [id number] sanofi pasteur complet ed yellow fever vaccine 08/05/22 Given Ambulat ory Pharmac y typhoid Vi capsular polysaccharid e vac 2021 [id number] sanofi pasteur complet ed typhoid Vi capsular polysacch aride vac 08/05/22 Given Ambulat ory Pharmac y tetanus-dipht h toxoids (Td) adult/adol 2021 [id number] sanofi pasteur complet ed tetanus-d iphth [...] Prevention' s HIV diagnostic algorithm. Refer to [facility] Lab Guide for additional information : [email or web address] x Testing performed by [...] ADM Date DC Date Status Disposition Source [address] [place] [address] Mert ALEXANDRE ([facility] [facility]) TELE CONSULT [id number] 5 Notes Entered by: ANDRES SYED 24 May 2021 1102 ------- ------- ------- ------- -- Illness ANDRES SYED 05/[address] [place] [address] Mert ALEXANDRE ([facility] [facility]) Procedures Combined list of: 1) Procedures from [facility] facilities [facility], not all [facility] non-surgical procedures [...] at [facility]VA Functional [place] Measurement (FIM) Scale: 1 = Total Assistance (Subject = 0% +), 2 = Maximal Assistance (Subject = 25% +), 3 = Moderate Assistance (Subject = 50% +), 4 = Minimal Assistance (Subject = 75% +), 5 = Supervision, 6 = Modified [place] (Device), 7 = Complete [place] (Timely, Safely). Assessment Date/Time Source Assessment Type Assessment Skill Assessment Score Assessment Details No data available for this section
== END 2024-11-08 10:24 | disposition home or self-care (01) ==
PROVIDERS: Emergency Provider Nurse Practitioner Family
DX: H66.92 Otitis media, unspecified, left ear (principal); Z86.16 Personal history of COVID-19
CPT/HCPCS: 99213; G0463